=== PATIENT | female | born 1950 | race African-American/Black ===

== ENCOUNTER 2020-02-07 12:59 | Outpatient (CLI) | payer MEDICARE, SELFPAY ==
--- NOTE | 2020-02-07 | ECHO_ITS ---
Patient Info Name: Rodney Love Age: 69 years : 1950 Gender: Female Ht: 61 in Wt: 151 lbs BSA: 1.74 m2 HR: 65 bpm BP: 157 / 106 mmHg Technical Quality: Good Exam Date: 02/07/2020 1:29 PM Exam Location: [facility] Patient Status: Outpatient Admit Date: 02/07/2020 Staff Ordering Physician: Robin Sellers DO Franchise Business Consultant: Tiki Yepez RDCS Attending Provider: Robin Sellers DO Referring Physician: Marlo STERLING; Exam Type: CA echo doppler color flow Study Info Indications - cardiomyopathy Complete two-dimensional, color flow and Doppler transthoracic echocardiogram is performed. Summary 1. Complete two-dimensional, color flow and Doppler transthoracic echocardiogram is performed. 2. Left ventricular chamber dimension is severely enlarged. 3. Left ventricular systolic function is severely reduced, estimated at 25-30%. 4. The left ventricular diastolic function is grade I diastolic dysfunction. 5. E/e' 17 is elevated. 6. Global longitudinal strain is abnormal at -7.4%. 7. Linear artifact in right ventricle suggestive of catheter(s), pacemaker lead(s), or ICD lead(s). 8. Left atrial chamber dimension is moderately enlarged. 9. Linear artifact in the right atrium suggestive of catheter(s), pacemaker lead(s), or ICD lead(s). 10. The mitral valve has mildly thickened leaflets. 11. There is moderate to severe mitral valve regurgitation. 12. There is mild to moderate tricuspid valve regurgitation. 13. No pulmonary hypertension, estimated pulmonary arterial systolic pressure is 30 mmHg. 14. There is trace pulmonic regurgitation. 15. There is trivial pericardial effusion. Left Ventricle E/e' 17 is elevated. Global longitudinal strain is abnormal at -7.4%. Left ventricular chamber dimension is severely enlarged. Left ventricular systolic function is severely reduced, estimated at 25-30%. The left ventricular diastolic function is grade I diastolic dysfunction. Right Ventricle Linear artifact in right ventricle suggestive of catheter(s), pacemaker lead(s), or ICD lead(s). Right ventricular chamber dimension is not well visualized. Left Atria Left atrial chamber dimension is moderately enlarged. Right Atria Linear artifact in the right atrium suggestive of catheter(s), pacemaker lead(s), or ICD lead(s). Right atrial chamber dimension is not well visualized. Aortic Valve The aortic valve is trileaflet. There is no aortic valve stenosis. There is no aortic valve regurgitation. Pulmonic Valve There is trace pulmonic regurgitation. Mitral Valve The mitral valve has mildly thickened leaflets. There is no mitral valve stenosis. There is moderate to severe mitral valve regurgitation. Tricuspid Valve There is mild to moderate tricuspid valve regurgitation. No pulmonary hypertension, estimated pulmonary arterial systolic pressure is 30 mmHg. Pericardium/Pleural There is trivial pericardial effusion. Inferior Vena Cava Normal inferior vena cava with >50% collapse upon inspiration consistent with normal right atrial pressure, 5 mmHg. Aorta The aortic root size at the sinus of Valsalva is normal. Left Ventricular Outflow Tract Name Value Normal LVOT 2D LVOT Diameter
== END 2020-02-07 13:00 | disposition home or self-care (01) ==
LOC: ANHCARD 13:07
PROVIDERS: PCP Internal Medicine; Visit Provider Internal Medicine Cardiovascular Disease
DX: I42.8 Other cardiomyopathies (principal)
CPT/HCPCS: 93306

== ENCOUNTER 2020-08-28 14:40 | Outpatient (CLI) | payer MEDICARE, SELFPAY ==
[2020-08-28 16:03] LABS: Alanine Aminotransferase 20 U/L (4-35); Albumin Level 4.2 g/dL (3.5-5.1); Alkaline Phosphatase 74 U/L (38-126); Anion Gap 3 mmol/L (8-16); Aspartate Amino Transferase 28 U/L (14-36); Bilirubin,Total 0.4 mg/dL (0.2-1.3); Blood Urea Nitrogen 14 mg/dL (7-17); Calcium 9.6 mg/dL (8.4-10.2); Carbon Dioxide 30 mmol/L (22-30); Chloride 108 mmol/L (98-107); Cholesterol 158 mg/dL (0-200); Estimated Glomerular Filt Rate > 60; Glucose 110 mg/dL (65-105); HDL Direct 52 mg/dL; Magnesium 1.6 mg/dL (1.6-2.3); Sodium 141 mmol/L (137-145); Triglycerides 94 mg/dL (<150)
[2020-08-28 16:13] LABS: LDL Cholesterol Direct 77 mg/dL
[2020-08-28 16:22] LABS: Digoxin 0.6 ng/mL (0.8-2.0)
[2020-08-28 16:57] LABS: Hemoglobin A1C 6.2 % (<5.7)
== END 2020-08-28 14:41 | disposition home or self-care (01) ==
PROVIDERS: PCP Internal Medicine; Visit Provider Internal Medicine Cardiovascular Disease
DX: E78.5 Hyperlipidemia, unspecified (principal); I42.8 Other cardiomyopathies; E11.9 Type 2 diabetes mellitus without complications
CPT/HCPCS: 36415; 80053; 80061; 80162; 83036; 83735; 84443

== ENCOUNTER 2021-04-10 10:44 | Emergency (ER) | payer MEDICARE, SELFPAY ==
--- NOTE | ~2021-04-10 | XR_ITS ---
EXAMINATION: XR chest 2V DATE: 04/10/2021 11:24 INDICATION: Chest pain and shortness of breath TECHNIQUE: PA and lateral views of the chest are obtained. COMPARISON: None available FINDINGS: Cardiomegaly is noted. There is a mild diffuse interstitial pattern. There are small pleura l effusions. No pneumothorax is identified. A triple lead cardiac pacemaker of the left chest wall en ds with leads in expected locations. There is moderate thoracic spondylosis. IMPRESSION: 1. Cardiomegaly with mild pulmonary edema. 2. Small pleural effusions. Reviewed, dictated and finalized at location A.
--- NOTE | 2021-04-10 10:45 | ECG_ITS ---
Measurements Intervals [place] Rate: 87 P: 24 ME: 147 QRS: -48 QRSD: 124 T: 71 QT: 391 QTc: 471 Interpretive Statements ATRIAL SENSE- ELECTRONIC VENTRICULAR PACEMAKER NO FURTHER INTERPRETATION IS POSSIBLE ATYPICAL ECG Electronically Signed On 04-10-2021 10:59:21 CDT by Robni Sellers D.O.
--- NOTE | 2021-04-10 10:46 | PC.NURSE ---
4 baby asa given by ems prior to arrival
[2021-04-10 10:49] VITALS: BP 109/76; PULSE 90; RESP 18; TEMP 36.7; O2SAT 95
--- NOTE | 2021-04-10 10:55 | PC.NURSE ---
I documented but did not obtain the EKG
[2021-04-10 11:16] LABS: Basophils Absolute Auto 0.1 K/mm3 (0.0-0.1); Basophils Percent Auto 0.7 % (0.2-1.2); Eosinophils Absolute Auto 0.1 K/mm3 (0-0.3); Eosinophils Percent Auto 1.3 % (0-4.4); Hematocrit 45.7 % (37.0-47.0); Hemoglobin 14.6 g/dL (12.0-15.0); Immature Granulocyte Absolute 0.08 K/mm3 (0.00-0.031); Lymphocytes Absolute Auto 3.59 K/mm3 (0.9-3.2); Lymphocytes Percent Auto 43.1 % (18.3-44.2); Mean Corpuscular HGB Conc 31.9 g/dl (32-36); Mean Corpuscular Hemoglobin 27.2 pg (26-34); Mean Corpuscular Volume 85.3 fl (80-100); Mean Platelet Volume 10.6 fl (7.4-10.4); Monocytes Absolute Auto 0.6 K/mm3 (0.1-0.6); Monocytes Percent Auto 6.6 % (2.6-8.5); Neutrophils Absolute Auto 3.9 K/mm3 (1.3-6.7); Neutrophils Percent Auto 47.3 % (45.5-73.1); Platelet Count Result 266 k/mm3 (150-375); Red Blood Count 5.36 M/mm3 (4.2-5.4); Red Cell Distribution Width 17.4 % (11.5-14.5); White Blood Count 8.3 K/mm3 (4.5-10.0)
[2021-04-10 11:30] LABS: Prothrombin Time 12.9 Seconds (11.1-14.7)
[2021-04-10 11:31] LABS: Partial Thromboplastin Time 25.8 SECONDS (22.3-36.8)
[2021-04-10 11:44] LABS: Anion Gap 10 mmol/L (8-16); Blood Urea Nitrogen 13 mg/dL (7-17); Calcium 10.2 mg/dL (8.4-10.2); Carbon Dioxide 26 mmol/L (22-30); Chloride 109 mmol/L (98-107); Estimated CRCL calculation 45 ml/min; Estimated Glomerular Filt Rate > 60; Glucose 131 mg/dL (65-110); Potassium 4.5 mmol/L (3.4-5.0); Sodium 145 mmol/L (137-145)
[2021-04-10 11:56] LABS: Troponin I < 0.012 ng/mL (0.000-0.034)
[2021-04-10 12:07] LABS: Platelet Estimate Adequate (Adequate)
[2021-04-10 12:08] LABS: Atypical Lymphocytes Present
[2021-04-10 16:28] LABS: Troponin I 0.012 ng/mL (0.000-0.034)
--- NOTE | 2021-04-10 16:58 | ED.CHESTPAIN ---
HPI - Chest Pain General Chief Complaint: Chest Pain Stated Complaint: chest pain Time Seen by Provider: 04/10/21 13:01 Source: patient History of Present Illness HPI narrative: Patient presents with chest pain. Patient ports she had chest pain about 945 this morning lasted approximately 30 minutes. Pain is achy, constant, no clear aggravating relieving factors. Associate with cold sweats and shortness of breath. Symptoms resolved after 30 minutes. Reports a continued dull ache that is in the center of her chest that is exacerbated with palpation of her chest. She denies any lightheadedness visit denies any nausea or vomiting. Patient never had symptoms like this before. She denies recent fevers, cough, congestion Related Data Home Medications Medication Instructions Recorded Confirmed alendronate 5 mg tablet 5 mg PO QAM 09/10/19 08/28/20 carvedilol 25 mg tablet 25 mg PO Q12H 09/10/19 08/28/20 ezetimibe 10 mg tablet 10 mg PO DAILY 09/10/19 08/28/20 sertraline 100 mg tablet 100 mg PO DAILY 09/10/19 08/28/20 furosemide 40 mg tablet 40 mg PO QAM 05/28/20 08/28/20 Allergies Allergy/AdvReac Type Severity Reaction Status Date / Time No Known Allergies Allergy Verified 03/06/21 11:23 Review of Systems Review of Systems: CONSTITUTIONAL: Denies fever, chills, or sweats. EYES: Denies visual changes, redness, or discharge. ENT: Denies rhinorrhea, congestion, sore throat, or otalgia. CARDIOVASCULAR: Denies palpitations. RESPIRATORY: Denies cough GASTROINTESTINAL: Denies abdominal pain, nausea, vomiting, or diarrhea. GENITOURINARY: Denies dysuria or hematuria. SKIN: Denies rash or itching. MUSCULOSKELETAL: Denies back pain, joint pain, or myalgia. NEUROLOGIC: Denies headache, numbness, dizziness, or weakness. PSYCHIATRIC: Denies anxiety or depression. All systems reviewed & are unremarkable except as noted in HPI and below PMFSH Past Medical History Medical History History of cataract Family History Family History Father Diabetes mellitus Hypertension Family history of cardiovascular disease Mother Hypertension Family history of cardiovascular disease Family history of Alzheimer's disease Social History Social History Smoking packs per day: 0.5 Smoking cigarettes per day: 10.0 Smoking status: Current every day smoker Alcohol intake: current Exam Narrative: GENERAL: Well-appearing, well-nourished, and in no acute distress. HEAD: Normocephalic, atraumatic. EYES: PERRLA and EOMI. ENT: Nares clear, no rhinorrhea or epistaxis. Mucous membranes moist. NECK: Supple. No masses. No JVD CHEST: Clear to auscultation. No respiratory distress. No wheezes rales or rhonchi HEART: Regular rate and rhythm. No murmur heard. Normal peripheral pulses. ABDOMEN: Soft, nontender, nondistended, normal active bowel sounds. EXTREMITIES: Normal range of motion. No edema. SKIN: Warm, dry, no rash. NEURO: No focal deficits. Alert and oriented x3. PSYCH: Normal mood and affect. Course Reevaluation(s) Reevaluation #1: Patient continues to be without recurrence of her symptoms. Labs were reassuring to include delta troponin. Case discussed with Dr. Sellers who will be happy to see the patient as an outpatient Date: 04/10/21 Time: 17:04 Vital Signs Vital signs: Vital Signs Temperature 36.7 C 04/10/21 10:49 Pulse Rate 90 04/10/21 10:49 Respiratory Rate 18 04/10/21 10:49 Blood Pressure 109/76 04/10/21 10:49 Pulse Oximetry 95 04/10/21 10:49 Temperature 36.7 C 04/10/21 10:49 Pulse Rate 93 04/10/21 17:08 Respiratory Rate 16 04/10/21 17:08 Blood Pressure 160/85 H 04/10/21 17:08 Pulse Oximetry 100 04/10/21 17:08 MDM - Chest Pain MDM Narrative Medical decision making narrative: H&P as above, vss, pt looks clinically well,
[2021-04-10 17:08] VITALS: BP 160/85; PULSE 93; RESP 16; O2SAT 100
[2021-04-10] MEDS: ACETAMINOPHEN 500 MG TABLET 1000 MG PO (17:10)
== END 2021-04-10 17:17 | disposition home or self-care (01) ==
PROVIDERS: Emergency Provider Emergency Medicine; PCP Internal Medicine
DX: R07.9 Chest pain, unspecified (principal); F17.210 Nicotine dependence, cigarettes, uncomplicated; I51.7 Cardiomegaly; Z95.0 Presence of cardiac pacemaker
CPT/HCPCS: 36415; 71046; 80048; 84484; 85025; 85610; 85730; 93005; 99284; A9270

== ENCOUNTER 2021-04-30 12:37 | Outpatient (CLI) | payer MEDICARE, SELFPAY ==
--- NOTE | 2021-04-30 12:58 | ECHO_ITS ---
Patient Info Name: Rodney Love Age: 71 years : 1950 Gender: Female Ht: 64 in Wt: 160 lbs BSA: 1.83 m2 HR: 72 bpm BP: 131 / 79 mmHg Heart Rhythm: Sinus Rhythm Exam Date: 04/30/2021 1:08 PM Exam Location: [facility] Patient Status: Outpatient Admit Date: 04/30/2021 Staff Ordering Physician: Robin Sellers DO Ore Crusher: Marivel De La Cruz RDCS Attending Provider: Robin Sellers DO Referring Physician: Marlo STERLING; Exam Type: CA echo doppler color flow Study Info Indications I42.8 - Other cardiomyopathies Complete two-dimensional, color flow and Doppler transthoracic echocardiogram is performed. Summary 1. Complete two-dimensional, color flow and Doppler transthoracic echocardiogram is performed. 2. Left ventricular chamber dimension is moderately enlarged. 3. Left ventricular systolic function is severely reduced, estimated at 25-30%. 4. The left ventricular diastolic function is grade I diastolic dysfunction. 5. E/e' 33 is significantly elevated. 6. Right ventricular systolic function is reduced based on abnormal TAPSE 1.4 cm. 7. Linear artifact in right ventricle suggestive of catheter(s), pacemaker lead(s), or ICD lead(s). 8. Left atrial chamber dimension is moderately enlarged. 9. Linear artifact in the right atrium suggestive of catheter(s), pacemaker lead(s), or ICD lead(s). 10. There is mild aortic valve sclerosis. 11. The mitral valve has mildly calcified annulus. 12. There is mild to moderate mitral valve regurgitation. 13. There is moderate tricuspid valve regurgitation. 14. No pulmonary hypertension, estimated pulmonary arterial systolic pressure is 32 mmHg. Left Ventricle E/e' 33 is significantly elevated. Left ventricular chamber dimension is moderately enlarged. Left ventricular systolic function is severely reduced, estimated at 25-30%. The left ventricular diastolic function is grade I diastolic dysfunction. Right Ventricle Right ventricular systolic function is reduced based on abnormal TAPSE 1.4 cm. Linear artifact in right ventricle suggestive of catheter(s), pacemaker lead(s), or ICD lead(s). Right ventricular chamber dimension is not well visualized. Left Atria Left atrial chamber dimension is moderately enlarged. Right Atria Linear artifact in the right atrium suggestive of catheter(s), pacemaker lead(s), or ICD lead(s). Right atrial chamber dimension is normal. Aortic Valve The aortic valve is trileaflet. There is mild aortic valve sclerosis. There is no aortic valve stenosis. There is no aortic valve regurgitation. Pulmonic Valve There is no pulmonic regurgitation. Mitral Valve The mitral valve has mildly calcified annulus. There is no mitral valve stenosis. There is mild to moderate mitral valve regurgitation. Tricuspid Valve There is moderate tricuspid valve regurgitation. No pulmonary hypertension, estimated pulmonary arterial systolic pressure is 32 mmHg. Pericardium/Pleural There is no pericardial effusion. Inferior Vena Cava Normal inferior vena cava with >50% collapse upon inspiration consistent with normal right atrial pressure, 5 mmHg. Aorta The aortic root size at the sinus of Valsalva is normal. Left Ventricular Outflow Tract Name Value Normal LVOT 2D
== END 2021-04-30 12:38 | disposition home or self-care (01) ==
LOC: ANHCARD 12:39
PROVIDERS: PCP Internal Medicine; Visit Provider Internal Medicine Cardiovascular Disease
DX: Z09 Encounter for follow-up examination after completed treatment for conditions other than malignant neoplasm (principal); I42.8 Other cardiomyopathies; I36.1 Nonrheumatic tricuspid (valve) insufficiency; I34.0 Nonrheumatic mitral (valve) insufficiency; I70.0 Atherosclerosis of aorta
CPT/HCPCS: 93306

== ENCOUNTER 2021-08-13 12:59 | Outpatient (CLI) | payer MEDICARE, SELFPAY ==
[2021-08-13 14:32] LABS: Alanine Aminotransferase 24 U/L (4-35); Albumin Level 4.6 g/dL (3.5-5.1); Alkaline Phosphatase 87 U/L (38-126); Anion Gap 6 mmol/L (8-16); Aspartate Amino Transferase 32 U/L (14-36); Bilirubin,Total 0.5 mg/dL (0.2-1.3); Blood Urea Nitrogen 16 mg/dL (7-17); Calcium 9.6 mg/dL (8.4-10.2); Carbon Dioxide 30 mmol/L (22-30); Chloride 107 mmol/L (98-107); Cholesterol 188 mg/dL (0-200); Estimated Glomerular Filt Rate 59; Glucose 96 mg/dL (65-110); HDL Direct 47 mg/dL; Potassium 4.4 mmol/L (3.4-5.0); Sodium 143 mmol/L (137-145); Triglycerides 95 mg/dL (<150)
[2021-08-13 14:45] LABS: LDL Cholesterol Direct 110 mg/dL
== END 2021-08-13 13:00 | disposition home or self-care (01) ==
LOC: ANHLAB 13:37
PROVIDERS: PCP Internal Medicine; Visit Provider Internal Medicine Cardiovascular Disease
DX: E78.5 Hyperlipidemia, unspecified (principal)
CPT/HCPCS: 36415; 80053; 80061

== ENCOUNTER 2022-11-30 01:04 | Day surgery (SDC) | payer MEDICARE, SELFPAY ==
[2022-11-29 12:51] VITALS: BMI 30.4
--- NOTE | 2022-11-29 13:13 | PC.NURSE ---
Pt did not have time to complete pre-procdure call. She will bring list of meds day of procedure
[2022-11-30] VITALS (7 sets, daily range): BP systolic 114–137; BP diastolic 71–84; PULSE 68–86; RESP 12–16; TEMP 36.4; O2SAT 98–99; BMI 31.0
--- NOTE | 2022-11-30 09:51 | PM.IMHP ---
H&P: HPI History of Present Illness Date/Time: 11/30/22 09:51 Chief Complaint: [address] Bi V ICD at RUIZ Narrative: Suni Love is a 72-year-old female with history of nonischemic cardiomyopathy, [address] Bi V ICD, hypertension, dyslipidemia, diabetes, tobacco use and CKD stage 3. She is normally followed by Dr. Sellers. Her Bi V ICD has reached [facility] and she is here for generator change. Her echo in April 2021 showed an ejection fraction 25-30%. She had original Bi V ICD implanted in [place] in 2008, with a generator change in 2015. She was last seen in his office on 10/13/2022 with stable CHF. She has been NPO and she is not on any anticoagulants. No known allergies. She does have some chronic BOYER which she thinks may be a little worse recently due to the smoky air and some mild pedal edema. Otherwise she is feeling well with no fevers or signs of infection. Review of Systems Constitutional: Constitutional: Denies fever(s) Eyes: Eyes: Reports no additional eye complaints ENT: Denies epistaxis Cardiovascular: Cardiovascular: Denies chest pain, Reports pedal edema, Denies lightheadedness and Reports dyspnea Respiratory: Respiratory: Denies chest congestion, Reports dyspnea and Reports dyspnea on exertion Gastrointestinal: Gastrointestinal: Denies abdominal pain and Denies hematochezia Genitourinary: Genitourinary: Denies dysuria Musculoskeletal: Musculoskeletal: Reports no additional musculoskeletal complaints Comments: Notes some discomfort of the left flank and lateral aspect of her abdomen Integumentary/Breasts: Skin/Breast: Reports system reviewed and no additional complaints, except as docu Neurologic: Reports system reviewed and no additional complaints, except as documented and Denies behavioral changes Psychiatric: Psychiatric: Denies behavioral changes [facility] Past Medical History Medical History (Updated 11/30/22 @ 10:20 by Aspen Shaikh MD) Biventricular implantable cardioverter-defibrillator (ICD) at end of device life [address]'s Bi V ICD was implanted in [place] in 2008, generator change in [place] in 2015, and another generator change at [facility] in 2022. CKD (chronic kidney disease) stage 3, GFR 30-59 ml/min Dyslipidemia Essential hypertension History of cataract NICM (nonischemic cardiomyopathy) Tobacco abuse Family History Family History Father Diabetes mellitus Hypertension Family history of cardiovascular disease Mother Hypertension Family history of cardiovascular disease Family history of Alzheimer's disease Social History Social History Smoking packs per day: 0.5 Smoking cigarettes per day: 10.0 Smoking status: Current every day smoker Tobacco type: cigarettes Alcohol intake: current Living arrangements: alone Spiritual care concerns: No Meds Home Medications and Allergies Home Medications Medication Instructions Recorded Confirmed Type alendronate 5 mg tablet 5 mg PO WEEKLY 09/10/19 11/30/22 History sertraline 100 mg tablet 100 mg PO DAILY 09/10/19 11/30/22 History allopurinol 100 mg tablet 100 mg PO DAILY 11/30/22 11/30/22 History atorvastatin 80 mg tablet 40 mg PO DAILY 11/30/22 11/30/22 History carvedilol 25 mg tablet 25 mg PO Q12H 11/30/22 11/30/22 History cholecalciferol (vitamin D3) 125 125 mcg PO DAILY 11/30/22 11/30/22 History mcg (5,000 unit) tablet (Vitamin D3) digoxin 125 mcg (0.125 mg) tablet 0.125 mg PO DAILY 11/30/22 11/30/22 History enalapril maleate 5 mg tablet 5 mg PO DAILY 11/30/22 11/30/22 History ezetimibe 10 mg tablet 10 mg PO DAILY 11/30/22 11/30/22 History famotidine 20 mg tablet 20 mg PO BID 11/30/22 11/30/22 History furosemide 40 mg tablet 40 mg PO DAILY 11/30/22 11/30/22 History glimepiride 1 mg tablet 1 mg PO QAM 11/30/22 11/30/22 History potassium chloride 10 mEq 10
[2022-11-30 09:57] LABS: Basophils Absolute Auto 0.1 K/mm3 (0.0-0.1); Basophils Percent Auto 0.7 % (0.2-1.2); Eosinophils Absolute Auto 0.1 K/mm3 (0-0.3); Eosinophils Percent Auto 0.8 % (0-4.4); Hematocrit 41.3 % (37.0-47.0); Hemoglobin 12.7 g/dL (12.0-15.0); Immature Granulocyte Absolute 0.04 K/mm3 (0.00-0.031); Immature Granulocyte Percent A 0.6 % (0-0.5); Lymphocytes Absolute Auto 2.61 K/mm3 (0.9-3.2); Lymphocytes Percent Auto 36.1 % (18.3-44.2); Mean Corpuscular HGB Conc 30.8 g/dl (32-36); Mean Corpuscular Hemoglobin 26.1 pg (26-34); Mean Platelet Volume 11.4 fl (7.4-10.4); Monocytes Absolute Auto 0.6 K/mm3 (0.1-0.6); Monocytes Percent Auto 7.6 % (2.6-8.5); Neutrophils Absolute Auto 3.9 K/mm3 (1.3-6.7); Neutrophils Percent Auto 54.2 % (45.5-73.1); Platelet Count Result 225 k/mm3 (150-375); Red Blood Count 4.86 M/mm3 (4.2-5.4); White Blood Count 7.2 K/mm3 (4.5-10.0)
[2022-11-30 10:09] LABS: Anion Gap 4 mmol/L (8-16); Blood Urea Nitrogen 18 mg/dL (7-17); Calcium 9.1 mg/dL (8.4-10.2); Carbon Dioxide 26 mmol/L (22-30); Chloride 110 mmol/L (98-107); Estimated CRCL calculation 41 ml/min; Estimated Glomerular Filt Rate > 60; Glucose 139 mg/dL (65-110); Potassium 4.6 mmol/L (3.4-5.0); Sodium 140 mmol/L (137-145)
--- NOTE | 2022-11-30 10:21 | WPDMODSED ---
Moderate Sedation Note-Pt Data Patient Data Diagnosis: [address]'s Bi V ICD at RUIZ nonischemic dilated cardiomyopathy Present Complaint: Bi V ICD at RUIZ Procedure to be performed/Plan: conscious sedation Generator change Allergies Allergy/AdvReac Type Severity Reaction Status Date / Time No Known Allergies Allergy Verified 11/30/22 09:27 Home Medications Medication Instructions Recorded Confirmed Type alendronate 5 mg tablet 5 mg PO WEEKLY 09/10/19 11/30/22 History sertraline 100 mg tablet 100 mg PO DAILY 09/10/19 11/30/22 History allopurinol 100 mg tablet 100 mg PO DAILY 11/30/22 11/30/22 History atorvastatin 80 mg tablet 40 mg PO DAILY 11/30/22 11/30/22 History carvedilol 25 mg tablet 25 mg PO Q12H 11/30/22 11/30/22 History cholecalciferol (vitamin D3) 125 125 mcg PO DAILY 11/30/22 11/30/22 History mcg (5,000 unit) tablet (Vitamin D3) digoxin 125 mcg (0.125 mg) tablet 0.125 mg PO DAILY 11/30/22 11/30/22 History enalapril maleate 5 mg tablet 5 mg PO DAILY 11/30/22 11/30/22 History ezetimibe 10 mg tablet 10 mg PO DAILY 11/30/22 11/30/22 History famotidine 20 mg tablet 20 mg PO BID 11/30/22 11/30/22 History furosemide 40 mg tablet 40 mg PO DAILY 11/30/22 11/30/22 History glimepiride 1 mg tablet 1 mg PO QAM 11/30/22 11/30/22 History potassium chloride 10 mEq 10 meq PO DAILY 11/30/22 11/30/22 History tablet,extended release Sedation/Anesthesia: No previous sedation/anesthesia problems (including family history). [facility] Past Medical History Medical History (Updated 11/30/22 @ 10:20 by Aspen Shaikh MD) Biventricular implantable cardioverter-defibrillator (ICD) at end of device life [address]'s Bi V ICD was implanted in [place] in 2008, generator change in [place] in 2015, and another generator change at [facility] in 2022. CKD (chronic kidney disease) stage 3, GFR 30-59 ml/min Dyslipidemia Essential hypertension History of cataract NICM (nonischemic cardiomyopathy) Tobacco abuse Family History Family History Father Diabetes mellitus Hypertension Family history of cardiovascular disease Mother Hypertension Family history of cardiovascular disease Family history of Alzheimer's disease Social History Social History Smoking packs per day: 0.5 Smoking cigarettes per day: 10.0 Smoking status: Current every day smoker Tobacco type: cigarettes Alcohol intake: current Living arrangements: alone Spiritual care concerns: No Mod Sed Physical Exam Physical Exam Pre Procedural Exam: Normal: Appearance, Eyes, Ears, Nose, Neck, Throat, Airway, Lungs, Heart Size, Heart Rate, Heart Rhythm, Neuro Exam, Abdomen and Skin ( pacemaker site is free of lesions) and Variation: Extremities ( mild lower extremity edema) Hours since solid foods: 12 Hours since liquid intake: 12 Mallampati Classification: class III Internal Medicine - PN: Obj Da Vital Signs Vital Signs: Vital Signs - 24 hr 11/30/22 09:51 Temperature 97.6 F Pulse Rate 86 Respiratory Rate 12 Blood Pressure 114/74 Pulse Oximetry 98 Oxygen Delivery Room Air Labs 11/30/22 09:25 11/30/22 09:25 Labs: Laboratory Results - last 24 hr 11/30/22 09:25 WBC 7.2 RBC 4.86 Hgb 12.7 Hct 41.3 MCV 85.0 MCH 26.1 MCHC 30.8 L RDW 17.0 H Plt Count 225 MPV 11.4 H Immature Gran % (Auto) 0.6 H Neut % (Auto) 54.2 Lymph % (Auto) 36.1 Dickens % (Auto) 7.6 Eos % (Auto) 0.8 Baso % (Auto) 0.7 Lymph # (Auto) 2.61 Dickens # (Auto) 0.6 Eos # (Auto) 0.1 Baso # (Auto) 0.1 Abs Immat Gran (auto) 0.04 H Absolute Neuts (auto) 3.9 Absolute Nucleated RBC 0.0 Nucleated RBC % 0.0 PT 13.0 INR 1.0 Sodium 140 Potassium 4.6 Chloride 110 H Carbon Dioxide 26 Anion Gap 4 L BUN 18 H Creatinine 1.00 Estim Creat Clear Calc 41 Estimated GFR > 60 Glucose
--- NOTE | 2022-11-30 10:50 | W.PM.PROC2 ---
Procedure Note - Detailed Date of Procedure 11/30/22 Pre-op Diagnosis RUIZ Post-op Diagnosis Same ( , status post generator change) Procedure Performed Conscious sedation Generator change Surgeon Aspen Shaikh MD Anesthesia Local ( with conscious sedation) Indications Suni Love is a 72-year-old female with history of nonischemic cardiomyopathy, [address]'s Bi V ICD, hypertension, dyslipidemia, diabetes,? tobacco use and CKD.? She is normally followed by Dr. Sellers.? Her Bi V ICD has reached RUIZ and she is here for generator change.? Her echo in April 2021 showed an ejection fraction 25-30%.? She had original Bi V ICD implanted in [place] in 2008, with a generator [place] [address] Denney in [place].? She was last seen in his office on 10/13/2022 with stable CHF.?? Findings Not pacer-dependent Description of Procedure PROCEDURE: Conscious sedation Generator change UNDERLYING RHYTHM: NSR CONSCIOUS SEDATION: Assessment: The patient has no history of anesthesia problems. The oropharynx is clear. The patient was deemed to be a good candidate for conscious sedation. The patient had continuous hemodynamic and oximetric monitoring during the procedure. Start time: 1058 a.m. Completion time: 1143 Total conscious sedation time: 45 min Medications: Versed 2 mg, fentanyl 100 mcg IV push Trained observer: Bianka Rodriguez, Outcome: The patient tolerated the procedure well with no complications. PROCEDURE: After informed consent, the patient is brought to the brine room laborer and the left prepectoral area was prepped and draped in usual fashion. The patient was given a prophylactic antibiotic intravenously with Ancef 1 mg IVP. After conscious sedation as described above, the area was anesthetized with 1% lidocaine. A skin incision is made with the Plasma Blade and carried down to the pacing capsule which was also incised. Hemostasis is obtained using the Plasma Blade. The lead/s was/were freed from the underlying capsule and inspected and were found to be intact. The pulse generator was delivered from the pocket. The lead/s was/were disconnected from the existing device and reconnected to the new device. A gentle tug could not remove it/them. The device and lead/s was/were interrogated and found to be functioning appropriately. The area was copiously irrigated with antibiotic-containing solution. The device was placed in a TyRx pouch and replaced in the pocket. The subcutaneous tissues were closed in a two-layer fashion with interrupted 2 0 Vicryl sutures and the skin was closed in a continuous fashion using 4 0 Vicryl. The area was cleansed, an Aquacel dressing applied. The patient tolerated the procedure well with no complications. Estimated blood loss was negligible. THRESHOLD INFORMATION: atrial lead: P wave sensing 1.5 mV, impedance 250 Ohms, threshold 2.75 volts at 0.5 milliseconds ( chronically Elevated) Right ventricular lead: R-wave sensing 11.9 mV, impedance 430 Ohms, threshold 0.75 volts at 0.5 milliseconds Left ventricular lead: Impedance 630 Ohms, threshold 1.0 volts at 0.8 milliseconds High-voltage lead: Impedance 87 Ohms PROGRAMMED PARAMETERS: DDDR 60-130, V-tach 750 ppm, VFib zone 181 ppm Implants New pulse generator: [employer] model 3357-40C, serial number [id number] Atrial lead: [address] [employer] model 1782 TC/ 52 cm, serial number [id number], implanted 10/25/2008 Right ventricular lead: [address] [employer] model 7122/62 cm, serial number [id number], implanted 10/25/2008 Left ventricular lead: [address] [employer] model 1058 T/ 86 cm, serial number [id number], implanted 10/25/2008 Explanted model 3357-40 C, serial number [id number], implanted 01/01/2015 Estimated Blood Loss 10 (cc's) Complications No immediate complications Condition Stable Disposition Observation
--- NOTE | 2022-11-30 12:02 | PM.OP ---
Procedure Note - Brief Procedure Note - Brief Date of procedure: 11/30/22 RUIZ Post-op diagnosis: Same ( status post generator change) Procedure performed: conscious sedation Generator change Surgeon: Aspen Shaikh MD Description of procedure: Uneventful generator change for a [address]'s Bi V ICD Complications: No immediate complications Condition: Stable Disposition: Observation
[2022-11-30] MEDS: ACETAMINOPHEN 500 MG TABLET 1000 MG PO (12:25)
--- NOTE | 2022-11-30 12:25 | SUR.PHASEII ---
Tylenol PO per MD orders for pt c/o lt upper chest pain. VS stable. Sandra d/i. Visitor present
== END 2022-11-30 13:20 | disposition home or self-care (01) ==
PROVIDERS: PCP Internal Medicine; Visit Provider Internal Medicine Cardiovascular Disease
PROC: 0JPT0PZ Removal of Cardiac Rhythm Related Device from Trunk Subcutaneous Tissue and Fascia, Open Approach (ICD-10-PCS; CPT 33264; principal; 2022-11-30 10:00)
DX: Z45.02 Encounter for adjustment and management of automatic implantable cardiac defibrillator (principal); I42.8 Other cardiomyopathies; E78.5 Hyperlipidemia, unspecified; I13.0 Hypertensive heart and chronic kidney disease with heart failure and stage 1 through stage 4 chronic kidney disease, or unspecified chronic kidney disease; I50.9 Heart failure, unspecified; E11.22 Type 2 diabetes mellitus with diabetic chronic kidney disease; N18.30 Chronic kidney disease, stage 3 unspecified; Z79.84 Long term (current) use of oral hypoglycemic drugs; F17.210 Nicotine dependence, cigarettes, uncomplicated
CPT/HCPCS: 33264; 36415; 80048; 85025; 85610; A9270; C1882; J0690; J2250; J3010; J7040

== ENCOUNTER 2023-08-13 17:23 | Inpatient (IN) | payer MEDICARE, SELFPAY ==
[2023-08-13] VITALS (21 sets, daily range): BP systolic 112–149; BP diastolic 77–125; PULSE 108–153; RESP 17–40; TEMP 36.3; O2SAT 15–100
--- NOTE | ~2023-08-13 | XR_ITS ---
EXAMINATION: XR chest 1V portable DATE: 08/15/2023 06:09 INDICATION: Congestive heart failure. TECHNIQUE: A single frontal view of the chest was obtained. COMPARISON: Chest single view 08/13/2023 FINDINGS: There are airspace opacities in the lower lung zones. No pleural effusion or pneumothorax. Cardiomegaly is noted. There is a left chest pacer/defibrillator with leads in right atrium, right ve ntricle, and coronary sinus. IMPRESSION: 1. Improved airspace opacities in the lower lung zones, consistent with atelectasis or less likely pn eumonia. 2. Cardiomegaly. Reviewed, dictated and finalized at location E. LESS COMMUNICATIONS ENGINEER IMPRESSION: 1. Improved airspace opacities in the lower lung zones, consistent with atelect asis or less likely pneumonia. 2. Cardiomegaly.
--- NOTE | ~2023-08-13 | US_ITS ---
EXAMINATION: US renal BI DATE: 08/15/2023 16:03 INDICATION: Abdominal pain TECHNIQUE: Multiple grayscale and Doppler ultrasound images of the kidneys were obtained. COMPARISON: None. FINDINGS: The right kidney measures 8.9 x 4.7 x 5.5 cm and contains a 1 cm cyst. The left kidney ary ures 11 x 7 x 8.6 cm and contains a 6 cm cyst. The kidneys demonstrate normal parenchymal echogenicit y. There is no hydronephrosis. The bladder is normal. IMPRESSION: 1. Normal kidneys without hydronephrosis. Reviewed, dictated and finalized at location B. MOLDER
--- NOTE | ~2023-08-13 | XR_ITS ---
EXAMINATION: XR chest 1V portable Exam Date/Time: 08/13/2023 18:09 NEUROLOGY STROKE PHYSICIAN HISTORY: SOB Comparison: 04/10/2021. RESULT: Lines, tubes, and devices: Left chest pacer/AICD. Lungs and pleura: Segmental/lobar left basilar airspace disease. Moderate diffuse reticular opacitie s. Cardiomediastinal silhouette: Stable. Other: No acute osseous or upper abdominal finding. IMPRESSION: Segmental/lobar left lower lobe atelectasis/consolidation. Moderate interstitial edema. Reviewed, dictated and finalized at location K. OLOGY STROKE PHYSICIAN IMPRESSION: Segmental/lobar left lower lobe atelectasis/consolidation. Moderate interstitia l edema.
--- NOTE | ~2023-08-13 | XR_ITS ---
EXAM: XR hip RT 2V w AP pelvis DATE: 08/14/2023 18:38 HISTORY: pain, no injury . COMPARISON: None available. FINDINGS: Normal mineralization. No fracture or dislocation. No lytic or blastic lesion. Lumbar dege nerative disc disease. Mild bilateral hip osteoarthritis. Spaces are maintained. No erosion or perios teal change. Soft tissues within normal limits. IMPRESSION: No acute osseous finding in the pelvis or right hip. Reviewed, dictated and finalized at location K. T II FARMWORKER
--- NOTE | 2023-08-13 17:29 | ECG_ITS ---
Measurements Intervals [place] Rate: 139 P: 7 MO: 114 QRS: -12 QRSD: 138 T: 84 QT: 326 QTc: 496 Interpretive Statements SINUS OR ECTOPIC ATRIAL TACHYCARDIA WITH SHORT MO INTERVAL LEFT BUNDLE BRANCH BLOCK BASELINE ARTIFACT- II, III, AVL, AVF, V4-V6 ABNORMAL ECG COMPARED TO ECG 04/10/2021 10:49:40 SINUS TACHYCARDIA NOW PRESENT LEFT BUNDLE-BRANCH BLOCK NOW PRESENT Electronically Signed On 08-13-2023 20:37:27 BEDSPREAD INSPECTOR by Robin Sellers D.O.
--- NOTE | 2023-08-13 17:30 | ED.SOB ---
HPI - SOB/Dyspnea General Chief Complaint: Shortness of Breath/Dyspnea Stated Complaint: Anxiety, Agression History of Present Illness HPI Narrative: Patient is a 73-year-old female with a history of CHF, hypertension, hyperlipidemia presenting with altered mental status. History is mostly obtained from EMS. They were called for shortness of breath. On their arrival, the patient was agitated and required 2 mg of IM Versed for cooperation. She was given a breathing treatment and placed on oxygen as she was satting in the 80s. Upon arrival, the patient continues to be altered and somewhat restless. Further history is limited secondary to altered mental status at this time. Related Data Allergies Allergy/AdvReac Type Severity Reaction Status Date / Time No Known Allergies Allergy Verified 04/28/23 15:09 Review of Systems Review of Systems: ROS unobtainable: Yes unobtainable due to mental status PMFSH Past Medical History Medical History Biventricular implantable cardioverter-defibrillator (ICD) at end of device life [address] Bi V ICD was implanted in [place] in 2008, generator change in [place] in 2015, and another generator change at [facility] in 2022. CKD (chronic kidney disease) stage 3, GFR 30-59 ml/min Dyslipidemia Essential hypertension History of cataract NICM (nonischemic cardiomyopathy) Tobacco abuse Family History Family History (Updated 08/14/23 @ 00:01 by Jamee Walker RN) Father Hypertension Mother Hypertension Alzheimer disease Heart disease Sibling Diabetes mellitus Cerebrovascular accident Sibling No problems noted. Social History Social History Smoking packs per day: 0.5 Smoking cigarettes per day: 10.0 Years smoked: 60 Smoking pack-years: 30.00 Smoking status: Current every day smoker Tobacco type: cigarettes Alcohol intake: never Substance use: never Do You Feel Safe in your Home?: Yes Lack of Transportation: No Lack of Food: Never True Current Housing: I Have Housing Concerned About Future Housing: No Difficulty Paying Gas/Electric Bills: No Difficulty Paying for Meds: No Currently Unemployed: No Education: High School Diploma/GED Difficulty w/ Childcare or Family Care: No Living arrangements: alone Spiritual care concerns: No Exam Narrative: GENERAL: ill appearing, restless, opens eyes to verbal stimuli, moving all extremities HEAD: Normocephalic, atraumatic. EYES: PERRLA and EOMI. ENT: Mucous membranes moist. NECK: Supple. CHEST: On non-rebreather, wheezing bilaterally, tachypneic, moderate respiratory distress HEART: tachycardic, regular rhythm ABDOMEN: Soft, nontender, nondistended EXTREMITIES: Normal range of motion. No edema. SKIN: Warm, dry, no rash. NEURO: altered, moving all extremities spontaneously, opens eyes to verbal stimuli but not following commands currently PSYCH: unable to assess Course Vital Signs Vital signs: Vital Signs Temperature 97.4 F L 08/13/23 17:21 Pulse Rate 153 H 08/13/23 17:21 Respiratory Rate 26 H 08/13/23 17:21 Pulse Oximetry 93 08/13/23 17:21 Oxygen Delivery Non-Rebreather Mask 08/13/23 17:21 Oxygen Flow Rate 15 08/13/23 17:21 Temperature 96.2 F L 08/16/23 15:54 Pulse Rate 70 08/16/23 15:54 Respiratory Rate 18 08/16/23 15:54 Blood Pressure 109/66 08/16/23 15:54 Pulse Oximetry 97 08/16/23 15:54 Oxygen Delivery Room Air 08/16/23 04:00 Oxygen Flow Rate 2 08/15/23 14:42 Fraction of Inspired Oxygen 08/15/23 14:42 MDM - SOB/Dyspnea MDM Narrative Medical decision making narrative: 73-year-old female presenting with respiratory distress and altered mental status. On arrival, patient is altered and somewhat restless. She is pulling at her non-rebreather. Patient placed on BiPAP and tolerating
[2023-08-13] MEDS: methylPREDNISolone SOD SUCC 125 MG VIAL IV PUSH (17:35)
[2023-08-13 17:58] LABS: Basophils Absolute Auto 0.1 K/mm3 (0.0-0.1); Basophils Percent Auto 0.4 % (0.2-1.2); Eosinophils Absolute Auto 0.1 K/mm3 (0-0.3); Eosinophils Percent Auto 0.6 % (0-4.4); Hematocrit 40.6 % (37.0-47.0); Hemoglobin 12.6 g/dL (12.0-15.0); Immature Granulocyte Absolute 0.14 K/mm3 (0.00-0.031); Immature Granulocyte Percent A 1.2 % (0-0.5); Lymphocytes Absolute Auto 4.68 K/mm3 (0.9-3.2); Lymphocytes Percent Auto 40.4 % (18.3-44.2); Mean Corpuscular Hemoglobin 25.7 pg (26-34); Mean Corpuscular Volume 82.9 fl (80-100); Mean Platelet Volume 11.7 fl (7.4-10.4); Monocytes Absolute Auto 0.6 K/mm3 (0.1-0.6); Monocytes Percent Auto 5.4 % (2.6-8.5); Platelet Count Result 232 k/mm3 (150-375); Red Cell Distribution Width 16.7 % (11.5-14.5); White Blood Count 11.6 K/mm3 (4.5-10.0)
[2023-08-13] MEDS: ALBUTEROL SULFATE NEB 2.5 MG/3 ML INH 10 MG INHALATION (17:59)
[2023-08-13] MEDS: IPRATROPIUM BR 0.02% INH SOLN 0.5 MG/2.5 ML VIAL INHALATION (17:59)
[2023-08-13 18:07] LABS: Alveolar/Arterial O2 Gradient 528.5 mmHg; Base Excess ABG -9.2 mEq/l (+/-2.0); Carboxyhemoglobin 1.4 % THb (0-2.0); Fractional Inspired Oxygen 100 %; HCO3 ABG 16.9 mEq/l (22.0-26.0); Methemoglobin ABG 0.2 %THb (0-1.5); Oxygen Content ABG 18.6 %vol (16.0-22.0); Oxygen Saturation ABG 98.6 % (95.0-100.0); Oxyhemoglobin 96.7 % THb (90.0-100.0); PCO2 ABG 37.3 mmHg (35.0-45.0); PO2 ABG 147.2 mmHg (80.0-100.0); PO2 FiO2 Ratio Arterial Blood 1.47 %; Reduced Hemoglobin 1.7 %THb (0-5.0); Total Hemoglobin 13.5 g/dL (12.0-18.0)
[2023-08-13 18:08] LABS: Alanine Aminotransferase 27 U/L (6-35); Albumin Level 3.8 g/dL (3.5-5.1); Alkaline Phosphatase 76 U/L (38-126); Anion Gap 13 mmol/L (8-16); Aspartate Amino Transferase 39 U/L (14-36); Bilirubin,Total 0.8 mg/dL (0.2-1.3); Blood Urea Nitrogen 10 mg/dL (7-17); Calcium 9.3 mg/dL (8.4-10.2); Carbon Dioxide 17 mmol/L (22-30); Chloride 110 mmol/L (98-107); Estimated CRCL calculation 43 ml/min; Estimated Glomerular Filt Rate > 60; Glucose 341 mg/dL (65-110); Lipase 85 U/L (23-300); Magnesium 1.8 mg/dL (1.6-2.3); Potassium 3.9 mmol/L (3.4-5.0); Sodium 140 mmol/L (137-145)
[2023-08-13 18:08] LABS: Device NON-INVASIVE VENT; Modified Allen's Test Pass; Non-Invasive Expiratory Pressure 5 CMH2O; Non-Invasive Inspiratory Pressure 10 CMH2O; Non-Invasive Vent Rate 16 /MIN; Site Drawn RIGHT RADIAL; pH ABG 7.274 (7.350-7.450)
[2023-08-13 18:12] LABS: Lactic Acid Reflex 3.8 mmol/L (0.7-2.0)
[2023-08-13 18:19] LABS: NT Pro B Type Natriuretic Pept 2260 pg/mL (19.9-100); Troponin I 0.017 ng/mL (0.000-0.034)
[2023-08-13 18:41] LABS: INR 1.1; Prothrombin Time 15.2 Seconds (11.1-14.7)
[2023-08-13 18:42] LABS: Partial Thromboplastin Time 25.9 SECONDS (22.3-36.8)
[2023-08-13 18:51] LABS: Influenza A QL RT-PCR Negative (Negative); Influenza B QL RT-PCR Negative (Negative); RSV RNA, RT-PCR Negative (Negative); SARS-CoV-2 RNA PCR Negative (Negative)
[2023-08-13] MEDS: FUROSEMIDE INJ 40 MG/4 ML VIAL IV PUSH (19:01)
--- NOTE | 2023-08-13 20:54 | ECG_ITS ---
Measurements Intervals [place] Rate: 120 P: 50 RI: 220 QRS: -84 QRSD: 186 T: 28 QT: 420 QTc: 595 Interpretive Statements ATRIAL SENSE- ELECTRONIC VENTRICULAR PACEMAKER UNDERLYING SINUS OR ECTOPIC ATRIAL TACHYCARDIA BASELINE WANDER- I, AVR, AVL NO FURTHER INTERPRETATION IS POSSIBLE ABNORMAL ECG COMPARED TO ECG 08/13/2023 17:39:24 ELECTRONIC VENTRICULAR PACEMAKER NOW PRESENT HEART RATE HAS DECREASED Electronically Signed On 08-14-2023 7:02:48 METAL STUD FRAMER by Robin Sellers D.O.
[2023-08-13 20:56] LABS: Reflex Lactic Acid Yes or No Add Lactic
[2023-08-13 21:03] LABS: Appearance Urine Cloudy (Clear); Bacteria Urine 1+ /hpf; Bilirubin Urine Negative (Negative); Blood Urine Trace (Negative); Color Urine Yellow (Yellow); Glucose Urine UA 1+ mg/dL (Negative); Ketones Urine Negative (Negative); Leukocyte Esterase Ur Negative LEU/UL (Negative); Need Manual Microscopic Reviewed; Nitrate Urine Negative (Negative); Protein Urine 2+ mg/dL (Negative); Specific Grav Ur 1.008 (1.001-1.035); Squamous Epithelial Cell Urine Many /hpf (Few); Urobilinogen Urine 0.2 mg/dL (<2.0); pH Urine 6.5 (5.0-9.0)
[2023-08-13 21:04] LABS: Add Urine Microscopic? YES
[2023-08-13 21:34] LABS: Troponin I 0.173 ng/mL (0.000-0.034)
[2023-08-13 22:11] LABS: Lactic Acid 2.5 mmol/L (0.7-2.0)
--- NOTE | 2023-08-13 23:18 | ADMGEN ---
This patient, Rodney Love, was admitted to IMU Room 203-01. Patient/family oriented to hospital policies and general routines including ID bracelet, bed and alarms, visiting hours, pain management, procedures, bathroom and other care routines, personal items, smoking policy, room service/diet, and visiting hours. Information on how to activate the Rapid Response Team has been discussed. Patient/Family are encouraged to report perceived risks to care and to ask questions if they do not understand what they are told or what they should do.
[2023-08-14] VITALS (24 sets, daily range): BP systolic 108–153; BP diastolic 63–82; PULSE 80–111; RESP 16–25; TEMP 36.1–36.8; O2SAT 92–99
[2023-08-14 00:14] LABS: Troponin I 0.201 ng/mL (0.000-0.034)
--- NOTE | 2023-08-14 01:20 | PM.IMHP ---
H&P: HPI History of Present Illness Date/Time: 08/14/23 01:20 Chief Complaint: Altered mental status Narrative: This is a very pleasant 73-year-old female with a past medical history depression, heart failure reduced ejection fraction (25% EF in 2020), CKD, hypertension, hyperlipidemia, status post biventricular ICD with generator change at [facility] in 2022 who presents with altered mental status. In [facility] she was found to be saturating in the 80s an acidotic by way ABG,, with lactic acidosis at 3.8 and leukocytosis and a chest x-ray demonstrating left lower lobe consolidation/atelectasis with moderate interstitial edema. The patient required 2 mg of IM Versed said she was not cooperative and agitated. He was given a breathing treatment along with Solu-Medrol and Lasix and placed on BiPAP and she returned to her normal mental status. Left bundle branch block appreciated on EKG along with paced rhythm. Patient has felt depressed as she has had many deaths in the family the past 6 months. Because of this she has not taking any of her medications whatsoever. She is not seeing a therapist either. Review of Systems Review of Systems: All systems reviewed & are unremarkable except as noted in HPI and below (Subjective) [facility] Past Medical History Medical History Biventricular implantable cardioverter-defibrillator (ICD) at end of device life [address] Bi V ICD was implanted in [place] in 2008, generator change in [place] in 2015, and another generator change at [facility] in 2022. CKD (chronic kidney disease) stage 3, GFR 30-59 ml/min Dyslipidemia Essential hypertension History of cataract NICM (nonischemic cardiomyopathy) Tobacco abuse Family History Family History (Updated 08/14/23 @ 00:01 by Jamee Walker RN) Father Hypertension Mother Hypertension Alzheimer disease Heart disease Sibling Diabetes mellitus Cerebrovascular accident Sibling No problems noted. Social History Social History Smoking packs per day: 0.5 Smoking cigarettes per day: 10.0 Years smoked: 60 Smoking pack-years: 30.00 Smoking status: Current every day smoker Tobacco type: cigarettes Alcohol intake: never Substance use: never Do You Feel Safe in your Home?: Yes Lack of Transportation: No Lack of Food: Never True Current Housing: I Have Housing Concerned About Future Housing: No Difficulty Paying Gas/Electric Bills: No Difficulty Paying for Meds: No Currently Unemployed: No Education: High School Diploma/GED Difficulty w/ Childcare or Family Care: No Living arrangements: alone Spiritual care concerns: No Meds Home Medications and Allergies Home Medications Medication Instructions Recorded Confirmed Type No Home Medications 08/14/23 08/14/23 History Allergies Allergy/AdvReac Type Severity Reaction Status Date / Time No Known Allergies Allergy Verified 04/28/23 15:09 Vital Signs Vital Signs - 24 hr 08/13/23 17:21 08/13/23 17:36 08/13/23 17:36 Temperature 97.4 F L Pulse Rate 153 H 148 H 146 H Respiratory Rate 26 H 34 H Blood Pressure 147/118 H Pulse Oximetry 93 Oxygen Delivery Non-Rebreather Mask Oxygen Flow Rate 15 08/13/23 17:59 08/13/23 18:05 08/13/23 18:06 Temperature Pulse Rate 125 H Respiratory Rate 29 H Blood Pressure Pulse Oximetry 100 100 100 Oxygen Delivery BiPAP BiPAP BiPAP Oxygen Flow Rate 08/13/23 18:05 08/13/23 18:19 08/13/23 18:22 Temperature Pulse Rate 128 H 126 H 133 H Respiratory Rate 29 H 28 H 40 H Blood Pressure 119/82 Pulse Oximetry 97 100 Oxygen Delivery BiPAP Oxygen Flow Rate 08/13/23 19:03 08/13/23 22:49 08/13/23 21:40 Temperature Pulse Rate 136 H 109 H 116 H Respiratory Rate 36 H 22 H 21 H Blood Pressure
[2023-08-14] MEDS: AZITHROMYCIN 500 MG/NS 250 ML 500 MG/250 ML BAG 250 MG IVPB (03:54)
[2023-08-14 04:33] LABS: Basophils Percent Auto 0.1 % (0.2-1.2); Hematocrit 40.3 % (37.0-47.0); Hemoglobin 12.7 g/dL (12.0-15.0); Immature Granulocyte Absolute 0.06 K/mm3 (0.00-0.031); Immature Granulocyte Percent A 0.6 % (0-0.5); Lymphocytes Absolute Auto 0.68 K/mm3 (0.9-3.2); Lymphocytes Percent Auto 6.6 % (18.3-44.2); Mean Corpuscular HGB Conc 31.5 g/dl (32-36); Mean Corpuscular Hemoglobin 25.8 pg (26-34); Mean Corpuscular Volume 81.7 fl (80-100); Mean Platelet Volume 11.1 fl (7.4-10.4); Monocytes Absolute Auto 0.2 K/mm3 (0.1-0.6); Monocytes Percent Auto 1.6 % (2.6-8.5); Neutrophils Absolute Auto 9.4 K/mm3 (1.3-6.7); Neutrophils Percent Auto 91.1 % (45.5-73.1); Platelet Count Result 211 k/mm3 (150-375); Red Blood Count 4.93 M/mm3 (4.2-5.4); Red Cell Distribution Width 16.3 % (11.5-14.5); White Blood Count 10.3 K/mm3 (4.5-10.0)
[2023-08-14 04:40] LABS: Lactic Acid Reflex 2.2 mmol/L (0.7-2.0)
[2023-08-14 04:47] LABS: Alanine Aminotransferase 39 U/L (6-35); Albumin Level 4.1 g/dL (3.5-5.1); Alkaline Phosphatase 74 U/L (38-126); Anion Gap 7 mmol/L (8-16); Aspartate Amino Transferase 50 U/L (14-36); Bilirubin,Total 0.6 mg/dL (0.2-1.3); Blood Urea Nitrogen 13 mg/dL (7-17); Calcium 9.8 mg/dL (8.4-10.2); Carbon Dioxide 25 mmol/L (22-30); Chloride 109 mmol/L (98-107); Estimated CRCL calculation 43 ml/min; Estimated Glomerular Filt Rate > 60; Glucose 177 mg/dL (65-110); Magnesium 1.7 mg/dL (1.6-2.3); Potassium 3.7 mmol/L (3.4-5.0); Sodium 141 mmol/L (137-145)
--- NOTE | 2023-08-14 05:00 | ECG_ITS ---
Measurements Intervals [place] Rate: 92 P: 48 [place]: 152 QRS: 269 QRSD: 112 T: 97 QT: 412 QTc: 511 Interpretive Statements ATRIAL SENSE- ELECTRONIC VENTRICULAR PACEMAKER NO FURTHER INTERPRETATION IS POSSIBLE ATYPICAL ECG COMPARED TO ECG 08/13/2023 20:57:43 HEART RATE HAS DECREASED Electronically Signed On 08-14-2023 15:22:41 COAT OPERATOR INSULATOR by Robin Sellers D.O.
[2023-08-14 05:02] LABS: Troponin I 0.183 ng/mL (0.000-0.034)
[2023-08-14 05:50] LABS: Base Excess ABG -1.3 mEq/l (+/-2.0); Fractional Inspired Oxygen 40 %; HCO3 ABG 23.1 mEq/l (22.0-26.0); Oxygen Content ABG 18.7 %vol (16.0-22.0); Oxygen Saturation ABG 97.4 % (95.0-100.0); Oxyhemoglobin 96.4 % THb (90.0-100.0); PCO2 ABG 37.6 mmHg (35.0-45.0); PO2 FiO2 Ratio Arterial Blood 2.42 %; Total Hemoglobin 13.7 g/dL (12.0-18.0); pH ABG 7.406 (7.350-7.450)
[2023-08-14 05:54] LABS: Device NON-INVASIVE VENT; Modified Allen's Test Pass; Non-Invasive Inspiratory Pressure 10 CMH2O; Non-Invasive Vent Rate 16 /MIN; Site Drawn LEFT RADIAL
[2023-08-14 05:55] LABS: Non-Invasive Expiratory Pressure 5 CMH2O
[2023-08-14] MEDS: FUROSEMIDE INJ 40 MG/4 ML VIAL IV PUSH (09:14)
[2023-08-14] MEDS: DIGOXIN TAB 125 MCG TABLET PO (13:18)
[2023-08-14] MEDS: carvediloL 25 MG TABLET PO ×2 (13:19→22:36)
[2023-08-14] MEDS: EZETIMIBE 10 MG TABLET PO (13:22)
[2023-08-14] MEDS: ENALAPRIL MALEATE 5 MG TABLET PO ×2 (13:22→22:36)
--- NOTE | 2023-08-14 15:04 | PM.CNCAR ---
Assessment and Plan Assessment and plan (1) Community acquired bacterial pneumonia: Code(s): J15.9 - Unspecified bacterial pneumonia Status: Acute Assessment and Plan: On antibiotics as per hospitalist. (2) Acute exacerbation of congestive heart failure: Code(s): I50.9 - Heart failure, unspecified Status: Acute Assessment and Plan: Acute on chronic combined systolic and diastolic heart failure due to stopping her cardiac medication due to depression. She is on Lasix 40 mg IV daily here, normally on Lasix 40 mg PO daily and KCl 10 meq daily. Resume Coreg, Enalapril, Digoxin. Obtain echo. (3) Biventricular ICD (implantable cardioverter-defibrillator) in place: Code(s): Z95.810 - Presence of automatic (implantable) cardiac defibrillator Status: Acute Assessment and Plan: Stable, last interrogation in Apr 2023. (4) Hypertension: Code(s): I10 - Essential (primary) hypertension Status: Acute Assessment and Plan: High. Resume home medication. (5) Dyslipidemia: Code(s): E78.5 - Hyperlipidemia, unspecified Status: Acute Assessment and Plan: On Atorvastatin and Zetia. (6) NICM (nonischemic cardiomyopathy): Code(s): I42.8 - Other cardiomyopathies Status: Acute (7) Tobacco abuse: Code(s): Z72.0 - Tobacco use Status: Acute Assessment and Plan: Counseled regarding smoking cessation. (8) Diabetes: Code(s): E11.9 - Type 2 diabetes mellitus without complications Status: Acute Assessment and Plan: Managed as per hospitalist. She would like to have right hip xray for pain per patient. History of Present Illness History of Present Illness Consult date/time: 08/14/23 15:04 Reason For Visit: CHF Exacerbation Narrative: 73 yr old woman who is my regular cardiology patient presents to ER for sob. She has a history of NICM, [address] BiV ICD, hypertension, dyslipidemia, DM, CKD stage III. States she had a few close family friends pass away since Apr 2023 and her best friend recently, and she did not have anyone to talk to. She felt depressed and did not have an appetite and therefore was only taking her medication about once a week. Then she felt more sob and could not breathe through her nose, felt some chest discomfort so she called the ambulance. It was found she has pneumonia, CHF. She has right hip pain especially with walking.? She smokes 1/4 ppd.? Denies orthopnea, PND, edema. Previously, she is under a lot of stress legally from driving under the influence and is at risk for being incarcerated for 5 years for it. Reports she is limited at walking 1/2 block now which used to be a couple of blocks due to BOYER. She feels occasional palpitations. She quit drinking alcohol. CARDIOVASCULAR PROCEDURES ECHO/MUGA: 04/30/21 Echo: EF 25-30%, mod LVE, grade I diastolic dysfunction (E/e' 33), mod LAE, mild MAC, mild-mod MR, mod TR. 02/07/20 Echo: EF 25-30%, severe LVE, grade I diastolic dysfunction (E/e' 17), mod LAE, mod-severe MR, mild-mod TR, trace PI. Echo ([place]: EF 40-45%, mod MR, mild TR.) - 08/13/2017 ELECTROPHYSIOLOGY: 11/30/[address] Shaikh. 04/10/21 EKG: Electronic ventricular paced rhythm. Devices ([address] BiVICD generator change in [place].) - 01/02/2016 Devices ([address] BiV ICD placement at [facility] in [place].) - 200804/10/21 CXR: Mild pulm edema. Small pleural effusions. Review of Systems Constitutional: Constitutional: Reports as per HPI, Denies chills and Denies fever(s) Cardiovascular: Cardiovascular: Reports as per HPI, Reports chest pain and Reports rapid heart rate Respiratory: Respiratory: Reports as per HPI and Reports dyspnea Gastrointestinal: Gastrointestinal: Reports as per HPI and Denies abdominal pain Genitourinary: Genitourinary: Reports as per HPI and Denies dysuria Musculoskeletal: Musculoskeletal: Reports as per HPI
--- NOTE | 2023-08-14 15:09 | PM.IMPN ---
Progress Note: A&P Assessment and Plan (1) Respiratory failure with hypoxia: Code(s): J96.91 - Respiratory failure, unspecified with hypoxia Status: Acute Assessment and Plan: Patient brought in by EMS for shortness of breath. Patient was agitated requiring Versed. ABG 7.27/37/147. Serum bicarb 17 with normal AG. Lactic acid 3.8. Glucose elevated but no BHO. CXR showing segmental and lobar LLL atelectasis/consolidation with moderate interstitial edema. Suspect acute on chronic CHF and/or PNA. Lasix given. Bipap started. Repeat ABG normal. Off Bipap and on O2 via nasal cannula Wean O2 as tolerated (2) Acute exacerbation of congestive heart failure: Code(s): I50.9 - Heart failure, unspecified Status: Acute Assessment and Plan: Patient presents with SOB Echo in Apr 2021 showing EF 25-30%, grade I diastolic dysfunction, decreased RV function, mild-mod MR and mod TR CXR showing interstitial edema. BNP 2260. Troponin elevated to 0.2 but flat felt related to the acute CHF Lasix started with good UOP. Continue daily weights, strict I/O's and fluid restriction Guideline directed medical therapy with Coreg and ACEi that were resumed. ICD in place. Continue IV diuretics. Check Echo Add Empagliflozin and Spironolactone (3) Community acquired bacterial pneumonia: Code(s): J15.9 - Unspecified bacterial pneumonia Status: Acute Assessment and Plan: As above. CXR showing segmental and lobar LLL atelectasis/consolidation WBC 11K. No fevers. COVID, influenza and RSV PCR is negative. Started on Rocephin and Azithromycin. Continue the same for now. Change to Doxycycline due to drug-drug interactions (4) Altered mental status: Code(s): R41.82 - Altered mental status, unspecified Status: Acute Assessment and Plan: On arrival to the ED, the patient had altered mental status, restless and agitated. She required 2 mg of IM Versed. Workup as above. No CT brain but patient's condition improved as her respiratory symptoms improved. [place] her symptoms related to acidosis. Start PT/OT (5) LBBB (left bundle branch block): Code(s): I44.7 - Left bundle-branch block, unspecified Status: Acute Assessment and Plan: Left bundle branch block noted by EKG and appears to be new. Cardiology was made aware from the ER. EKG does show paced rhythm. Troponin peaked at 0.2 and flat. Patient denies chest pain. Cardiolgoy consulted and appreciate their input Add ASA; statin therapy and Coreg resumed. (6) Elevated troponin: Code(s): R79.89 - Other specified abnormal findings of blood chemistry Status: Acute Assessment and Plan: As above (7) Diabetes: Code(s): E11.9 - Type 2 diabetes mellitus without complications Status: Acute Assessment and Plan: The patient's blood glucose was reviewed on 08/13 Glucose remains well controlled this morning. Start AccuCheks covering with sliding scale. Hypoglycemia protocol will be available as needed. (8) CKD (chronic kidney disease) stage 3, GFR 30-59 ml/min: Code(s): N18.30 - Chronic kidney disease, stage 3 unspecified Status: Acute Assessment and Plan: Baseline Cr 0.9-1.1 with eGFR >60 prior to admission. Cr 1.0 here and stable. Follow closely while on Lasix (9) Essential hypertension: Code(s): I10 - Essential (primary) hypertension Status: Acute Assessment and Plan: Patient's blood pressure was reviewed on 08/13 Blood pressure remains well controlled. Will continue to monitor (10) Depression: Code(s): F32.A - Depression, unspecified Status: Acute Assessment and Plan: Mood stable but unhappy affect. Care coordination to provide information about grief counselling. She would like to resume sertraline at 100mg dose - explained better to resume at lower dose but she is insistent Concern for incr
[2023-08-14] MEDS: ENOXAPARIN 40 MG/0.4 ML SYRINGE SUB-Q (16:45)
[2023-08-14] MEDS: ASPIRIN 81 MG CHEWABLE TABLET PO (16:45)
[2023-08-14 16:56] LABS: Glucose Point of Care 106 mg/dl (65-105)
[2023-08-14] MEDS: DOXYCYCLINE HYCLATE 100 MG TABLET PO (22:36)
[2023-08-14 23:02] LABS: Glucose Point of Care 128 mg/dl (65-105)
[2023-08-15] VITALS (19 sets, daily range): BP systolic 87–127; BP diastolic 48–78; PULSE 61–86; RESP 16–22; TEMP 36.1–36.2; O2SAT 94–100
--- NOTE | 2023-08-15 | ECHO_ITS ---
Patient Info Name: Rodney Love Age: 73 years : 1950 Gender: Female Ht: 61 in Wt: 167 lbs BSA: 1.84 m2 HR: 69 bpm BP: 97 / 53 mmHg Heart Rhythm: Sinus Rhythm Technical Quality: Good Exam Date: 08/15/2023 12:31 PM Exam Location: Echo Lab Patient Status: Inpatient Admit Date: 08/14/2023 Staff Ordering Physician: Alonzo Rivers MD Caponizer: Dasia Garcia RDCS Attending Provider: Lovely Ramachandran MD Exam Type: CA echo doppler color flow Study Info Indications - resp failure Complete two-dimensional, color flow and Doppler transthoracic echocardiogram is performed. Summary 1. Complete two-dimensional, color flow and Doppler transthoracic echocardiogram is performed. 2. Left ventricular chamber dimension is severely enlarged. 3. Left ventricular systolic function is severely reduced, estimated at 30-35%. 4. The left ventricular diastolic function is abnormal. 5. E/e' 35 is significantly elevated. 6. Global longitudinal strain is abnormal at -6.9%. 7. Linear artifact in right ventricle suggestive of catheter(s), pacemaker lead(s), or ICD lead(s). 8. Left atrial chamber dimension is moderately enlarged. 9. Linear artifact in the right atrium suggestive of catheter(s), pacemaker lead(s), or ICD lead(s). 10. There is moderate mitral valve regurgitation. 11. There is mild tricuspid valve regurgitation. 12. No pulmonary hypertension, estimated pulmonary arterial systolic pressure is 29 mmHg. 13. There is small circumferential pericardial effusion. Left Ventricle E/e' 35 is significantly elevated. Global longitudinal strain is abnormal at -6.9%. Left ventricular chamber dimension is severely enlarged. Left ventricular systolic function is severely reduced, estimated at 30-35%. The left ventricular diastolic function is abnormal. Right Ventricle Linear artifact in right ventricle suggestive of catheter(s), pacemaker lead(s), or ICD lead(s). Right ventricular chamber dimension is normal. Right ventricular systolic function is normal. Left Atria Left atrial chamber dimension is moderately enlarged. Right Atria Linear artifact in the right atrium suggestive of catheter(s), pacemaker lead(s), or ICD lead(s). Right atrial chamber dimension is normal. Aortic Valve The aortic valve is trileaflet. There is no aortic valve stenosis. There is no aortic valve regurgitation. Pulmonic Valve There is no pulmonic regurgitation. Mitral Valve There is no mitral valve stenosis. There is moderate mitral valve regurgitation. Tricuspid Valve There is mild tricuspid valve regurgitation. No pulmonary hypertension, estimated pulmonary arterial systolic pressure is 29 mmHg. Pericardium/Pleural No cardiac tamponade. There is small circumferential pericardial effusion. Inferior Vena Cava Normal inferior vena cava with >50% collapse upon inspiration consistent with normal right atrial pressure, 5 mmHg. Aorta The aortic root size at the sinus of Valsalva is normal. Left Ventricular Outflow Tract Name Value Normal LVOT 2D LVOT Diameter 2.0 cm LVOT Doppler LVOT Peak Gradient 2 mmHg LVOT Mean Gradient 1 mmHg LVOT VTI
[2023-08-15 04:54] LABS: Basophils Percent Auto 0.2 % (0.2-1.2); Hematocrit 38.4 % (37.0-47.0); Hemoglobin 12.1 g/dL (12.0-15.0); Immature Granulocyte Absolute 0.12 K/mm3 (0.00-0.031); Immature Granulocyte Percent A 0.8 % (0-0.5); Lymphocytes Absolute Auto 2.33 K/mm3 (0.9-3.2); Lymphocytes Percent Auto 14.7 % (18.3-44.2); Mean Corpuscular HGB Conc 31.5 g/dl (32-36); Mean Corpuscular Hemoglobin 25.8 pg (26-34); Mean Corpuscular Volume 81.9 fl (80-100); Mean Platelet Volume 11.3 fl (7.4-10.4); Monocytes Percent Auto 6.6 % (2.6-8.5); Neutrophils Absolute Auto 12.3 K/mm3 (1.3-6.7); Neutrophils Percent Auto 77.7 % (45.5-73.1); Platelet Count Result 199 k/mm3 (150-375); Red Blood Count 4.69 M/mm3 (4.2-5.4); Red Cell Distribution Width 16.3 % (11.5-14.5); White Blood Count 15.9 K/mm3 (4.5-10.0)
[2023-08-15 05:04] LABS: Lactic Acid Reflex 1.2 mmol/L (0.7-2.0)
[2023-08-15 05:16] LABS: Hemoglobin A1C 6.6 % (<5.7)
[2023-08-15 05:17] LABS: LDL Cholesterol Direct 105 mg/dL
[2023-08-15 05:23] LABS: Alanine Aminotransferase 28 U/L (6-35); Albumin Level 3.7 g/dL (3.5-5.1); Alkaline Phosphatase 70 U/L (38-126); Anion Gap 6 mmol/L (8-16); Aspartate Amino Transferase 29 U/L (14-36); Bilirubin,Total 0.4 mg/dL (0.2-1.3); Blood Urea Nitrogen 31 mg/dL (7-17); Calcium 9.5 mg/dL (8.4-10.2); Carbon Dioxide 26 mmol/L (22-30); Chloride 108 mmol/L (98-107); Cholesterol 181 mg/dL (0-200); Estimated CRCL calculation 34 ml/min; Estimated Glomerular Filt Rate 53; Glucose 128 mg/dL (65-110); HDL Direct 46 mg/dL; Magnesium 1.9 mg/dL (1.6-2.3); Potassium 3.5 mmol/L (3.4-5.0); Sodium 140 mmol/L (137-145); Triglycerides 91 mg/dL (<150)
--- NOTE | 2023-08-15 07:39 | PM.PNCARD ---
Progress Note: A&P Assessment and Plan (1) Community acquired bacterial pneumonia: Code(s): J15.9 - Unspecified bacterial pneumonia Status: Acute Assessment and Plan: On antibiotics as per hospitalist. (2) Acute exacerbation of congestive heart failure: Code(s): I50.9 - Heart failure, unspecified Status: Acute Assessment and Plan: Acute on chronic combined systolic and diastolic heart failure due to stopping her cardiac medication due to depression. Normally on Lasix 40 mg PO daily and KCl 10 meq daily. Resumed Coreg, Enalapril, Digoxin. Jardiance and Spironolactone added. Stop IV Lasix. Start Lasix 20 mg PO daily. Obtain echo today. (3) Biventricular ICD (implantable cardioverter-defibrillator) in place: Code(s): Z95.810 - Presence of automatic (implantable) cardiac defibrillator Status: Acute Assessment and Plan: Stable, last interrogation in Apr 2023. (4) Hypertension: Code(s): I10 - Essential (primary) hypertension Status: Acute Assessment and Plan: Stable. Resume home medication. (5) Dyslipidemia: Code(s): E78.5 - Hyperlipidemia, unspecified Status: Acute Assessment and Plan: On Atorvastatin and Zetia. (6) NICM (nonischemic cardiomyopathy): Code(s): I42.8 - Other cardiomyopathies Status: Acute (7) Tobacco abuse: Code(s): Z72.0 - Tobacco use Status: Acute Assessment and Plan: Counseled regarding smoking cessation. (8) Diabetes: Code(s): E11.9 - Type 2 diabetes mellitus without complications Status: Acute Assessment and Plan: Managed as per hospitalist. She would like to have right hip xray for pain per patient. Subjective Date/time seen: 08/15/23 07:39 Interval history: Reports chest pain with deep inspiration only. Mild sob. Exam Const: General: cooperative, healthy appearing and comfortable Orientation/consciousness: oriented to person, oriented to place and oriented to time Resp: Auscultation: crackles, no rhonchi and no wheezes Cardio: Rate: regular rate Rhythm: regular rhythm Heart sounds: no murmurs Peripheral pulses: dorsalis pedis present Neuro: General: oriented to person, oriented to place and oriented to time Extrem: Right lower extremity: no edema Left lower extremity: no edema Objective Data Vital Signs Vital Signs: Vital Signs - 24 hr 08/14/23 08:00 08/14/23 08:33 08/14/23 08:00 Temperature 97.8 F Pulse Rate 99 91 Respiratory Rate 16 Blood Pressure 128/77 Pulse Oximetry 96 95 Oxygen Delivery Nasal Cannula Oxygen Flow Rate 2 08/14/23 10:00 08/14/23 11:49 08/14/23 12:00 Temperature 97.9 F Pulse Rate 99 102 H 102 H Respiratory Rate 16 Blood Pressure 147/82 H Pulse Oximetry 94 Oxygen Delivery Oxygen Flow Rate 08/14/23 08:00 08/14/23 12:00 08/14/23 13:18 Temperature Pulse Rate 102 H Respiratory Rate Blood Pressure Pulse Oximetry 95 99 Oxygen Delivery Nasal Cannula Nasal Cannula Oxygen Flow Rate 4 4 08/14/23 13:19 08/14/23 14:00 08/14/23 15:15 Temperature 98.1 F Pulse Rate 102 H 97 102 H Respiratory Rate 18 Blood Pressure 124/71 Pulse Oximetry 95 Oxygen Delivery Oxygen Flow Rate 08/14/23 16:00 08/14/23 16:00 08/14/23 18:00 Temperature Pulse Rate 99 99 Respiratory Rate Blood Pressure Pulse Oximetry 97 Oxygen Delivery Nasal Cannula Oxygen Flow Rate 1 08/14/23 16:15 08/14/23 20:36 08/14/23 22:36 Temperature 98.3 F 96.9 F L Pulse Rate 100 86 82 Respiratory Rate 20 16 Blood Pressure 122/72 108/63 Pulse Oximetry 97 98 Oxygen Delivery Oxygen Flow Rate 08/15/23 00:06 08/14/23 20:00 08/15/23 00:00 Temperature 97.1 F L Pulse Rate 82 86 82 Respiratory Rate 16 16 16 Blood Pressure 103/62 Pulse Oximetry 98 98 98 Oxygen Delivery Nasal Cannula Nasal Cannula Oxygen Flow Rate 1 1 08/14/23 20:00 08/14/23
[2023-08-15 09:02] LABS: Glucose Point of Care 118 mg/dl (65-105)
[2023-08-15] MEDS: ENALAPRIL MALEATE 5 MG TABLET PO (09:08)
[2023-08-15] MEDS: DOXYCYCLINE HYCLATE 100 MG TABLET PO (09:08)
[2023-08-15] MEDS: EZETIMIBE 10 MG TABLET PO (09:08)
[2023-08-15] MEDS: ATORVASTATIN 40 MG TABLET 80 MG PO (09:08)
[2023-08-15] MEDS: DIGOXIN TAB 125 MCG TABLET PO (09:08)
[2023-08-15] MEDS: ENOXAPARIN 40 MG/0.4 ML SYRINGE SUB-Q (09:08)
[2023-08-15] MEDS: FUROSEMIDE 20 MG TABLET PO (09:08)
[2023-08-15] MEDS: POTASSIUM CHLORIDE 10 MEQ ER TABLET PO (09:09)
[2023-08-15] MEDS: EMPAGLIFLOZIN 10 MG TABLET PO (09:09)
[2023-08-15] MEDS: carvediloL 25 MG TABLET PO ×2 (09:09→21:23)
[2023-08-15] MEDS: SPIRONOLACTONE 12.5 MG TABLET PO (09:10)
--- NOTE | 2023-08-15 10:15 | PM.IMPN ---
Progress Note: A&P Assessment and Plan (1) Respiratory failure with hypoxia: Code(s): J96.91 - Respiratory failure, unspecified with hypoxia Status: Acute Assessment and Plan: Patient brought in by EMS for shortness of breath. Patient was agitated requiring Versed. ABG 7.27/37/147. Serum bicarb 17 with normal AG. Lactic acid 3.8. Glucose elevated but no BHO. CXR showing segmental and lobar LLL atelectasis/consolidation with moderate interstitial edema. Suspect acute on chronic CHF and/or PNA. Lasix given. Bipap started. Repeat ABG normal. Off Bipap and on O2 via nasal cannula Weaning O2; stop O2 since 98% on 1L. (2) Acute exacerbation of congestive heart failure: Code(s): I50.9 - Heart failure, unspecified Status: Acute Assessment and Plan: Patient presents with SOB Echo in Apr 2021 showing EF 25-30%, grade I diastolic dysfunction, decreased RV function, mild-mod MR and mod TR CXR showing interstitial edema. BNP 2260. Troponin elevated to 0.2 but flat felt related to the acute CHF Lasix started with good UOP. Continue daily weights, strict I/O's and fluid restriction Guideline directed medical therapy with Coreg and ACEi that were resumed. ICD in place. Empagliflozin and Spironolactone added Echo pending Lasix changed to oral route now (3) Community acquired bacterial pneumonia: Code(s): J15.9 - Unspecified bacterial pneumonia Status: Acute Assessment and Plan: As above. CXR showing segmental and lobar LLL atelectasis/consolidation WBC 11K. No fevers. COVID, influenza and RSV PCR is negative. Started on Rocephin and Azithromycin. UCx negative BCx NGTD WBC up to 16k now but did receive steroids in ED CXR today showing improved airspace disease Continue abx but change to oral. (4) Altered mental status: Code(s): R41.82 - Altered mental status, unspecified Status: Acute Assessment and Plan: On arrival to the ED, the patient had altered mental status, restless and agitated. She required 2 mg of IM Versed. Workup as above. No CT brain but patient's condition improved as her respiratory symptoms improved. [place] her symptoms related to acidosis. PT/OT ordered (5) LBBB (left bundle branch block): Code(s): I44.7 - Left bundle-branch block, unspecified Status: Acute Assessment and Plan: Left bundle branch block noted by EKG and appears to be new. Cardiology was made aware from the ER. EKG does show paced rhythm. Troponin peaked at 0.2 and flat. Patient denies chest pain. Cardiolgoy consulted and appreciate their input Continue ASA, statin therapy and Coreg (6) Elevated troponin: Code(s): R79.89 - Other specified abnormal findings of blood chemistry Status: Acute Assessment and Plan: As above (7) Diabetes: Code(s): E11.9 - Type 2 diabetes mellitus without complications Status: Acute Assessment and Plan: The patient's blood glucose was reviewed on 08/14 Glucose remains well controlled this morning. Start AccuCheks covering with sliding scale. Hypoglycemia protocol will be available as needed. Empagliflozin added (8) CKD (chronic kidney disease) stage 3, GFR 30-59 ml/min: Code(s): N18.30 - Chronic kidney disease, stage 3 unspecified Status: Acute Assessment and Plan: Baseline Cr 0.9-1.1 with eGFR >60 prior to admission. Cr 1.0 here but climbed to 1.2 from diuresis Follow closely (9) Essential hypertension: Code(s): I10 - Essential (primary) hypertension Status: Acute Assessment and Plan: Patient's blood pressure was reviewed on 08/14 Blood pressure soft now Will continue to monitor (10) Depression: Code(s): F32.A - Depression, unspecified Status: Acute Assessment and Plan: Mood stable today Care coordination to provide information about grief counselling. Add back low dose sertraline if
[2023-08-15] MEDS: ASPIRIN 81 MG CHEWABLE TABLET PO (11:19)
[2023-08-15] MEDS: SERTRALINE HCL 25 MG TABLET PO (11:19)
[2023-08-15 11:59] LABS: Glucose Point of Care 172 mg/dl (65-105)
[2023-08-15 16:37] LABS: Glucose Point of Care 113 mg/dl (65-105)
[2023-08-15 20:50] LABS: Glucose Point of Care 155 mg/dl (65-105)
[2023-08-16] VITALS (13 sets, daily range): BP systolic 109–133; BP diastolic 60–74; PULSE 61–82; RESP 16–20; TEMP 35.7–35.8; O2SAT 95–99
[2023-08-16 05:25] LABS: Hematocrit 39.5 % (37.0-47.0); Hemoglobin 12.1 g/dL (12.0-15.0); Mean Corpuscular HGB Conc 30.6 g/dl (32-36); Mean Corpuscular Hemoglobin 25.2 pg (26-34); Mean Corpuscular Volume 82.1 fl (80-100); Mean Platelet Volume 11.8 fl (7.4-10.4); Platelet Count Result 217 k/mm3 (150-375); Red Blood Count 4.81 M/mm3 (4.2-5.4); Red Cell Distribution Width 16.4 % (11.5-14.5); White Blood Count 10.6 K/mm3 (4.5-10.0)
[2023-08-16 05:51] LABS: Anion Gap 6 mmol/L (8-16); Blood Urea Nitrogen 26 mg/dL (7-17); Calcium 9.8 mg/dL (8.4-10.2); Carbon Dioxide 26 mmol/L (22-30); Chloride 110 mmol/L (98-107); Estimated CRCL calculation 37 ml/min; Estimated Glomerular Filt Rate 59; Glucose 94 mg/dL (65-110); Potassium 3.7 mmol/L (3.4-5.0); Sodium 142 mmol/L (137-145)
[2023-08-16 07:50] LABS: Glucose Point of Care 102 mg/dl (65-105)
--- NOTE | 2023-08-16 07:52 | PM.PNCARD ---
Progress Note: A&P Assessment and Plan (1) Community acquired bacterial pneumonia: Code(s): J15.9 - Unspecified bacterial pneumonia Status: Acute Assessment and Plan: On antibiotics as per hospitalist. (2) Acute exacerbation of congestive heart failure: Code(s): I50.9 - Heart failure, unspecified Status: Acute Assessment and Plan: Euvolemic. Acute on chronic combined systolic and diastolic heart failure due to stopping her cardiac medication due to depression. 08/15/23 Echo: EF 30-35%, severe LVE, diastolic dysfunction (E/e' 35), mod LAE, mod MR, mild TR, small pericardial effusion. On Coreg, Enalapril, Digoxin, Jardiance and Spironolactone, on Lasix 20 mg PO daily. May d/c home from cardiology standpoint and f/u with me in 1-2 weeks. (3) Biventricular ICD (implantable cardioverter-defibrillator) in place: Code(s): Z95.810 - Presence of automatic (implantable) cardiac defibrillator Status: Acute Assessment and Plan: Stable, last interrogation in Apr 2023. (4) Hypertension: Code(s): I10 - Essential (primary) hypertension Status: Acute Assessment and Plan: Stable. Resume home medication. (5) Dyslipidemia: Code(s): E78.5 - Hyperlipidemia, unspecified Status: Acute Assessment and Plan: On Atorvastatin and Zetia. (6) NICM (nonischemic cardiomyopathy): Code(s): I42.8 - Other cardiomyopathies Status: Acute (7) Tobacco abuse: Code(s): Z72.0 - Tobacco use Status: Acute Assessment and Plan: Counseled regarding smoking cessation. (8) Diabetes: Code(s): E11.9 - Type 2 diabetes mellitus without complications Status: Acute Assessment and Plan: Managed as per hospitalist. Subjective Date/time seen: 08/16/23 07:52 Interval history: Denies chest pain or sob. Exam Const: General: cooperative, healthy appearing and comfortable Orientation/consciousness: oriented to person, oriented to place and oriented to time Resp: Auscultation: clear to auscultation bilaterally, no crackles, no rales, no rhonchi and no wheezes Cardio: Rate: regular rate Rhythm: regular rhythm Heart sounds: no murmurs Peripheral pulses: dorsalis pedis present Neuro: General: oriented to person, oriented to place and oriented to time Extrem: Right lower extremity: no edema Left lower extremity: no edema Objective Data Vital Signs Vital Signs: Vital Signs - 24 hr 08/15/23 08:00 08/15/23 09:08 08/15/23 09:09 Temperature 97.2 F L Pulse Rate 70 74 72 Respiratory Rate 18 Blood Pressure 91/63 L Pulse Oximetry 98 Oxygen Delivery Oxygen Flow Rate Fraction of Inspired Oxygen 08/15/23 10:53 08/15/23 11:37 08/15/23 12:00 Temperature 97.1 F L Pulse Rate 76 Respiratory Rate 18 Blood Pressure 87/48 L Pulse Oximetry 94 Oxygen Delivery Nasal Cannula Nasal Cannula Oxygen Flow Rate 1 1 Fraction of Inspired Oxygen 08/15/23 14:42 08/15/23 16:00 08/15/23 08:00 Temperature 96.9 F L Pulse Rate 76 78 Respiratory Rate 22 H Blood Pressure 116/72 Pulse Oximetry 95 100 Oxygen Delivery Nasal Cannula Oxygen Flow Rate 2 Fraction of Inspired Oxygen 08/15/23 10:00 08/15/23 12:00 08/15/23 14:00 Temperature Pulse Rate 77 75 72 Respiratory Rate Blood Pressure Pulse Oximetry Oxygen Delivery Oxygen Flow Rate Fraction of Inspired Oxygen 08/15/23 16:00 08/15/23 18:00 08/15/23 08:00 Temperature Pulse Rate 72 61 Respiratory Rate Blood Pressure Pulse Oximetry 98 Oxygen Delivery Nasal Cannula Oxygen Flow Rate 1 Fraction of Inspired Oxygen 08/15/23 12:00 08/15/23 16:00 08/15/23 20:15 Temperature 96.9 F L Pulse Rate 65 Respiratory Rate 18 Blood Pressure 127/78 Pulse Oximetry 97 Oxygen Delivery Room Air Room Air Oxygen Flow Rate Fraction of Inspired Oxygen 08/15/23 21:23
[2023-08-16] MEDS: ENALAPRIL MALEATE 5 MG TABLET PO (10:13)
[2023-08-16] MEDS: POTASSIUM CHLORIDE 10 MEQ ER TABLET PO (10:13)
[2023-08-16] MEDS: AMOXICILLIN/CLAVULANATE K 875-125 MG TAB 1 TABLET PO (10:13)
[2023-08-16] MEDS: ATORVASTATIN 40 MG TABLET 80 MG PO (10:13)
[2023-08-16] MEDS: EZETIMIBE 10 MG TABLET PO (10:13)
[2023-08-16] MEDS: FUROSEMIDE 20 MG TABLET PO (10:13)
[2023-08-16] MEDS: ENOXAPARIN 40 MG/0.4 ML SYRINGE SUB-Q (10:14)
[2023-08-16] MEDS: carvediloL 25 MG TABLET PO (10:14)
[2023-08-16] MEDS: SERTRALINE HCL 25 MG TABLET PO (10:14)
[2023-08-16] MEDS: SPIRONOLACTONE 12.5 MG TABLET PO (10:14)
[2023-08-16] MEDS: DIGOXIN TAB 125 MCG TABLET PO (10:14)
[2023-08-16] MEDS: EMPAGLIFLOZIN 10 MG TABLET PO (10:14)
[2023-08-16 11:47] LABS: Glucose Point of Care 152 mg/dl (65-105)
[2023-08-16] MEDS: ASPIRIN 81 MG CHEWABLE TABLET PO (13:24)
--- NOTE | 2023-08-16 16:05 | PM.DS ---
DS: Admitting Diagnosis Discharge Date 08/16/23 Admitting Diagnosis Altered mental status DS: Discharge Diagnosis Discharge Diagnosis (1) Respiratory failure with hypoxia: Code(s): J96.91 - Respiratory failure, unspecified with hypoxia Status: Acute (2) Acute exacerbation of congestive heart failure: Code(s): I50.9 - Heart failure, unspecified Status: Acute (3) Community acquired bacterial pneumonia: Code(s): J15.9 - Unspecified bacterial pneumonia Status: Acute (4) Altered mental status: Code(s): R41.82 - Altered mental status, unspecified Status: Acute (5) LBBB (left bundle branch block): Code(s): I44.7 - Left bundle-branch block, unspecified Status: Acute (6) Elevated troponin: Code(s): R79.89 - Other specified abnormal findings of blood chemistry Status: Acute (7) Diabetes: Code(s): E11.9 - Type 2 diabetes mellitus without complications Status: Acute (8) CKD (chronic kidney disease) stage 3, GFR 30-59 ml/min: Code(s): N18.30 - Chronic kidney disease, stage 3 unspecified Status: Acute (9) Essential hypertension: Code(s): I10 - Essential (primary) hypertension Status: Acute (10) Depression: Code(s): F32.A - Depression, unspecified Status: Acute (11) Tobacco abuse: Code(s): Z72.0 - Tobacco use Status: Acute DS: Summary Hospital Course Reason for hospitalization: 73yo female with depression, systolic CHF with ICD, DM, CKD and HTN who presents with altered mental status and found to be hypoxic and acidotic. She required 2 mg of IM Versed as she was not cooperative and agitated.? Please see H&P for details. Hospital Course: Patient brought in by EMS for shortness of breath. Patient was agitated in the ED requiring Versed. ABG 7.27/37/147. Serum bicarb 17 with normal AG. Lactic acid 3.8. Glucose elevated but no BHO. CXR showing segmental and lobar LLL atelectasis/consolidation with moderate interstitial edema. Echo showing EF 30-35%, abnormal diastolic dysfunction, moderate MR and small pericardial effusion. BNP 2260. Troponin elevated to 0.2 but flat felt related to the acute/chronic systolic and diastolic CHF. Lasix started with good UOP. Guideline directed medical therapy with Coreg and ACEI that were resumed. ICD in place. Empagliflozin and Spironolactone added. Repeat ABG normal. Off Bipap and on O2 via nasal cannula. Able to be weaned off oxygen. Concern for PNA as well. WBC 11K. No fevers. COVID, influenza and RSV PCR is negative. She was started on Rocephin and Azithromycin. UCx negative. BCx NGTD. On arrival to the ED, the patient had altered mental status, restless and agitated. She required 2 mg of IM Versed. No CT brain but patient's condition improved as her respiratory symptoms improved. [place] her symptoms related to respiratory failure and acidosis. She worked with PT/OT. She feels she has longstanding underlying memory problems. Left bundle branch block noted by EKG and appears to be new. Cardiology was made aware from the ER.?EKG does show paced rhythm.? Patient denies chest pain. Cardiology consulted and appreciate their input. She was complaining of right flank pain and had CVA tenderness. Renal US showing no acute fiindings. Pain improved. Patient overall did well and was able to be discharged on 08/16/23 Status at Discharge Cognitive/behavioral status at discharge: stable Time Spent with Patient Time attestation: Total time spent providing and/or coordinating discharge services: 35 minutes Time spent: Greater than 30 minutes Exam Narrative: AF 96.2 109/66 70 18 97% ra Gen - NARD Chest - CTA bilaterally, nml RR CV - RRR S1/S2. Tele showing mostly paced rhythm Abd - Soft, NT/ND, Positive BS Ext - No pedal edema Psych - Nml mood and affect affect Skin - Warm and dry DS: Data Data Completed and Pending Labs on day of discharge: Labs from [facility]
[2023-08-16 16:14] LABS: Glucose Point of Care 106 mg/dl (65-105)
== END 2023-08-16 18:04 | disposition home or self-care (01) | DRG 193 ==
LOC: ANHED 22:04 → ANHIMU 22:33
PROVIDERS: Internal Medicine Cardiovascular Disease; Admitting Provider General Practice; Emergency Provider Emergency Medicine; PCP Internal Medicine; Visit Provider Internal Medicine
DX: J18.9 Pneumonia, unspecified organism (principal); I50.43 Acute on chronic combined systolic (congestive) and diastolic (congestive) heart failure; J96.01 Acute respiratory failure with hypoxia; I13.0 Hypertensive heart and chronic kidney disease with heart failure and stage 1 through stage 4 chronic kidney disease, or unspecified chronic kidney disease; I42.8 Other cardiomyopathies; N18.30 Chronic kidney disease, stage 3 unspecified; E11.22 Type 2 diabetes mellitus with diabetic chronic kidney disease; E78.5 Hyperlipidemia, unspecified; F43.20 Adjustment disorder, unspecified; F17.210 Nicotine dependence, cigarettes, uncomplicated; F32.A Depression, unspecified; I44.7 Left bundle-branch block, unspecified; Z91.199 Patient's noncompliance with other medical treatment and regimen due to unspecified reason; Z95.810 Presence of automatic (implantable) cardiac defibrillator
CPT/HCPCS: 36415; 36600; 71045; 73502; 76775; 80048; 80053; 80061; 81001; 82375; 82805; 82948; 83036; 83050; 83605; 83690; 83735; 83880; 84443; 84484; 85025; 85027; 85610; 85730; 87040; 87086; 87088; 87637; 93005; 93306; 94002; 94640; 96365; 96375; 97161; 97165; 99291; A9270; G0378; J0456; J0696; J1650; J1940; J2930

== ENCOUNTER 2024-10-26 14:14 | Outpatient (CLI) | payer MEDICARE, SELFPAY ==
--- OUTSIDE RECORDS SUMMARY | 2024-10-26 14:17 | XMS_ITS | Referral Summary ---
Author Organization [facility] Address [address] [place] [id number] Care Team Providers Care Real Property Appraiser Name Role Phone Charles Arellano MD Primary Care Provider [phone] Allergies No known active allergies Medications carvediloL (COREG) 25 mg tablet Take 1 tablet (25 mg total) by mouth 2 (two) times a day 05/19/2020 Active atorvastatin (LIPITOR) 40 mg tablet Take 1 tablet (40 mg total) by mouth nightly 06/23/2015 Active enalapril (VASOTEC) 5 mg tablet Take 1 tablet (5 mg total) by mouth daily 05/19/2020 Active furosemide (LASIX) 40 mg tablet Take 1 tablet (40 mg total) by mouth daily 06/26/2015 Active sertraline (ZOLOFT) 100 mg tablet Take 1 tablet (100 mg total) by mouth daily Active cholecalciferol (VITAMIN D-3) 5,000 unit capsule Take 1 capsule (5,000 Units total) by mouth daily Active allopurinoL (ZYLOPRIM) 100 mg tablet Take 1 tablet (100 mg total) by mouth daily as needed As needed for gout 01/18/2020 Active digoxin (LANOXIN) 125 mcg (0.125 mg) tablet Take 1 tablet (125 mcg total) by mouth daily 06/26/2015 Active Active Problems Problem Noted Date Diagnosed Date Chest pain, unspecified type 01/27/2023 SOB (shortness of breath) 01/27/2023 Obesity, Class II, BMI 35-39.9 01/27/2023 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 Dx; NICM. [facility]. Patient follows with Dr Sellers. Social History Tobacco Use Types Packs/Day Years Used Date Smoking Tobacco: Every Day Smokeless Tobacco: Never Alcohol Use Standard Drinks/Week Comments Yes 0 (1 standard drink = 0.6 oz pur e alcohol) Personal Safety Answer Date Recorded Getting School Help Needed Not on file 02/02 Comments No Sex and Gender Information Value Date Recorded Sex Assigned at Not on file Legal Sex Female 9:01 PM FILM RECORDIST Gender Identity Not on file Sexual Orientation Not on file Last Filed Vital Signs Vital Sign Reading Time Taken Comments Blood Pressure 128/76 01/28/2023 3:06 PM CDT Pulse 73 01/28/2023 3:06 PM CDT Temperature 36.5 C (97.7 F) 01/28/2023 3:06 PM CDT Respiratory Rate 16 01/28/2023 3:06 PM CDT Oxygen Saturation 100% 01/28/2023 3:06 PM CDT Inhaled Oxygen Concentration - - Weight 76.3 kg (168 lb 3.2 oz) 01/27/2023 11:16 PM CDT Height 154.9 cm (5' 1 ) 01/27/2023 11:16 PM CDT Body Mass Index 31.78 01/27/2023 11:16 PM CDT Plan of Treatment Not on file Procedures Procedure Name Priority Date/Time Associated Diagnosis Comments SCREENING MAMMOGRAM BILATERAL W BRANDEN Schedule Routine, Read Routine (OP Routine) 07/28/2021 2:45 PM FILM RECORDIST Encounter for screening mammogram for malignant neoplasm of breast DEXA AXIAL SKELETON BONE DENSITY 1 OR MORE SITES Schedule Routine, Read Routine (OP Routine) 07/25/2018 1:38 PM FILM RECORDIST Asymptomatic menopausal state COLONOSCOPY IMAGES 07/04/2015 from Last 3 Months or Most Recently Relevant to Health Maintenance Results * Screening Mammogram Bilateral W Branden (07/28/2021 2:45 PM FILM RECORDIST) Anatomical Region Laterality Modality Breast Bilateral Mammography 07/28/2021 3:47 PM FILM RECORDIST Impressions 07/28/2021 3:47 PM FILM RECORDIST There is no mammographic evidence of malignancy. A 1 year screening mammogram is recommended. BI-RADS: 1 - Negative. The patient has been or will be contacted. The patient will be entered into a reminder system with a target due date of 1 year for her next mammogram. Electronically signed by: Osmani Castelan M.D. Narrative 07/28/2021 3:47 PM FILM RECORDIST EXAMINATION: SCREENING MAMMOGRAM BILATERAL W BRANDEN ORDERING HEALTHCARE PROVIDER: SANDY SONG HISTORY: Routine screening mammography. COMPARISON: 05/06/2020, 08/05/2016, 02/02/2016, 01/08/2016 TECHNIQUE: CC and MLO views of the bilateral breasts were obtained with digital technique using breast tomosynthesis with C view. Computer aided detection was utilized. FINDINGS: DENSITY: There are scattered fibroglandular elements in the bilateral breasts. BREASTS: There is a left chest wall pacemaker/defibrillator which objects over and partially obscures the left axilla on the MLO view. There are no suspicious masses, suspicious calcifications, or other suspicious findings in either breast. There has been no suspicious interval change. Sandy Song MD IM MAMMO PROCEDURES Final Result * Dexa Axial Skeleton Bone Density 1 or 2 Site (07/25/2018 1:38 PM FILM RECORDIST) Anatomical Region Laterality Modality Body N/A Other 07/25/2018 1:39 PM FILM RECORDIST Impressions 07/25/2018 1:40 PM FILM RECORDIST 1. OSTEOPOROSIS OF THE LEFT HIP. 2. OSTEOPENIA OF THE LUMBAR SPINE. COMMENT: W.H.O. defines the T-score of between -1 and -2.5 as osteopenia, the level at which there may be an increased risk of developing osteoporosis and fractures in the future. Osteoporosis is defined as T-score lower than -2.5 (significantly increased risk of fracture due to osteoporosis). T-score is a comparison to peak bone mineral density of young adult reference population. Z-score is a comparison to bone mineral density of sex and age group population. Electronically signed by: Yuan Robb M.D. Narrative 07/25/2018 1:40 PM FILM RECORDIST DEXA AXIAL SKELETON BONE DENSITY 1 OR MORE SITES HISTORY: Postmenopausal osteoporosis evaluation. COMPARISON: None available. FINDINGS: DXA LEFT HIP RESULTS SUMMARY: 1. Femoral neck BMD 0.563 (g/cmsquared); T-SCORE -2.6 2. Total hip BMD 0.711 (g/cmsquared); T-SCORE -1.9 DXA L-SPINE RESULTS SUMMARY: 1. Total lumbar BMD 0.886 (g/cmsquared); T-SCORE -1.5 Procedure Note Yuan Robb MD - 07/25/2018 DEXA AXIAL SKELETON BONE DENSITY 1 OR MORE SITES HISTORY: Postmenopausal osteoporosis evaluation. COMPARISON: None available. FINDINGS: DXA LEFT HIP RESULTS SUMMARY: 1. Femoral neck BMD 0.563 (g/cmsquared); T-SCORE -2.6 2. Total hip BMD 0.711 (g/cmsquared); T-SCORE -1.9 DXA L-SPINE RESULTS SUMMARY: 1. Total lumbar BMD 0.886 (g/cmsquared); T-SCORE -1.5 IMPRESSION: 1. OSTEOPOROSIS OF THE LEFT HIP. 2. OSTEOPENIA OF THE LUMBAR SPINE. COMMENT: W.H.O. defines the T-score of between -1 and -2.5 as osteopenia, the level at which there may be an increased risk of developing osteoporosis and fractures in the future. Osteoporosis is defined as T-score lower than -2.5 (significantly increased risk of fracture due to osteoporosis). T-score is a comparison to peak bone mineral density of young adult reference population. Z-score is a comparison to bone mineral density of sex and age group population. Electronically signed by: Yuan Robb M.D. Sandy Song MD IM DXA PROCEDURES Final Re sult * COLONOSCOPY IMAGES (07/04/2015) Anatomical Region Laterality Modality Other Narrative 07/04/2015 Ordered by an unspecified provider. Historical Provider GI PROCEDURE ORDERABLES F inal Result from Last 3 Months or Most Recently Relevant to Health Maintenance Insurance [facility] MEDICARE ADVANTAGE [place] [id number] [facility] MEDICARE ADVANTAGE Advance Directives For more information, please contact: [phone] * Full Code (Latest Code Status on File) Date Activated Date Inactivated Comments 01/27/2023 11:17 PM 01/28/2023 11:37 PM Care Teams Real Property Appraiser Relationship Specialty Start Date End Date Charles Arellano MD [address] [place] [address] DR LIM B [address] [id number] PCP - General Family Medicine 02/24/24
--- OUTSIDE RECORDS SUMMARY | 2024-10-26 14:17 | XMS_ITS | Clinical Summary ---
Author Organization [facility] [employer] Address [facility] [place] [address] Care Team Providers Care Transfer Driver Name Role Phone Unavailable Primary Care Provider Unavailabl e Source Comments [facility] [employer],non-owned Affiliates and Associated Physician Practices is amultiple site organization consisting of ambulatory clinics and hospital sitesin [place], [place], [place] and [place]. This disclosure is being madepursuant to the Care Everywhere program and may not contain all information available regarding this patient. Last updated 18.[facility] [employer] Allergies No known active allergies Social History Tobacco Use Types Packs/Day Years Used Date Smoking Tobacco: Every Day Cigarettes Smokeless Tobacco: Never Tobacco Cessation:Ready to Q uit: Not Asked; Counseling Given: Not Answered Alcohol Use Standard Drinks/Week Comments Never 0 (1 standard drink = 0.6 oz pur e alcohol) Comments Unknown Sex and Gender Information Value Date Recorded Sex Assigned at Not on file Legal Sex Female 2:37 PM SWITCH CLEANER Gender Identity Not on file Sexual Orientation Not on file Last Filed Vital Signs Vital Sign Reading Time Taken Comments Blood Pressure 152/94 05/29/2024 2:40 PM SWITCH CLEANER Pulse 98 05/29/2024 2:40 PM SWITCH CLEANER Temperature 36.6 C (97.9 F) 05/29/2024 2:40 PM SWITCH CLEANER Respiratory Rate 16 05/29/2024 2:40 PM SWITCH CLEANER Oxygen Saturation 99% 05/29/2024 4:00 PM SWITCH CLEANER Inhaled Oxygen Concentration - - Weight - - Height 154.9 cm (5' 1 ) 05/29/2024 2:40 PM SWITCH CLEANER Body Mass Index - - Plan of Treatment Health Maintenance Due Date Last Done Comments COLOGSHONA (AGES 45-75) - COLON CA SCREENING 1949 COLON MONITORING 1949 COLONOSCOPY - COLON CA SCREENING 1949 CT COLONOGRAPHY - COLON CA SCREENING 1950 Colorectal Cancer Screening 1949 FIT - COLON CA SCREENING 1949 FLEX SIG - COLON CA SCREENING 1949 HEPATITIS C SCREENING 03/18/1967 DTAP/TDAP/TD VACCINES (1 - Tdap) 1968 PNEUMOCOCCAL VACCINE 50+ (1 of 2 - PCV) 1968 ZOSTER VACCINE (1 of 2) 1999 MAMMOGRAM 07/28/2023 07/28/2021, 07/14, 05/06/2020, Additional history exists COVID-19 VACCINE ( - season) 2024 03/27/2021, 02/20/2021 Respiratory Syncytial Virus (RSV) Vaccine Pt: or over 60 yrs (1 - 1-dose 75+ series) 2024 DEPRESSION SCREENING 06/13/2024 MEDICARE AWV CALENDAR YEAR 2024 INFLUENZA VACCINE (Season Ended) 2025 06/01/2019, 04/11/2017, 05/29/2015, Additional history exists LIPID TESTING 01/29/2028 01/28/2023 BONE DENSITY TESTING Completed 07/25/2018, 01/08/20 16 HEPATITIS B VACCINE Aged Out No longe r eligible based on patient's age to complete this topic HIB VACCINE Aged Out No longer eligi ble based on patient's age to complete this topic HPV VACCINE Aged Out No longer eligi ble based on patient's age to complete this topic MENINGOCOCCAL (Group B) VACCINE SHARED DECISION-MAKING Aged Out No longer eligible based on patient's age to complete this topic MENINGOCOCCAL GROUPS A/C/Y/W VACCINE Aged Out No longer eligible based on patient's age to complete this topic Insurance [facility] MANAGED MEDICARE ADV MEDICARE
--- OUTSIDE RECORDS SUMMARY | 2024-10-26 14:17 | XMS_ITS | Clinical Summary ---
Author Organization [facility] Address [address] [place] [address] Phone Care Team Providers Care Rodding Anode Worker Name Role Phone Aquilino Farrell MD Unavailable [phone] Charles Arellano MD Primary Care Provider [phone] Allergies No known active allergies Medications digoxin (LANOXIN) 125 MCG Tablet Take 1 Tab by mouth daily. 12 6 Active enalapril (VASOTEC) 20 MG Tablet Take 20 mg by mouth daily. 2 5 Active furosemide (LASIX) 40 MG Tablet Take 40 mg by mouth daily. 2 6 Active atorvastatin (LIPITOR) 40 MG Tablet Take 40 mg by mouth nightly. 5 6 Active sertraline (ZOLOFT) 100 MG Tablet Take 100 mg by mouth daily. 0 6 Active Cholecalciferol (VITAMIN D PO) Take 5,000 Units by mouth daily. Active POTASSIUM PO Take 10 mEq by mouth 2 times daily. Active carvedilol (COREG) 25 MG Tablet Take 50 mg by mouth 2 times daily. Active HYDROcodone-everardo taminophen (NORCO) 5-325 MG Tablet Take 1-2 Tabs by mouth every 4 hours as needed for Pain. 40 Tab 0 6 Active polyethylene glycol (MIRALAX) Powder Use entire 255g bottle with 64oz of clear liquid as directed for colonoscopy prep. 255 g 0 7 Active alendronate (FOSAMAX) 5 MG Tablet Take 5 mg by mouth every morning (before breakfast). Active Jardiance 10 MG Tablet 4 Active spironolactone (ALDACTONE) 25 MG Tablet Take 25 mg by mouth daily. Active Active Problems Problem Noted Date Diagnosed Date Acute frontal sinusitis 07/23/2015 Colon neoplasm 07/23/2015 Immunizations Immunization Administration Dates Next Due Influenza Vaccine greater than 3 yrs 05/29/2015 Family History Medical History Relation Name Comments Arthritis Father Diabetes Father Osteoarthritis Father Colon Cancer Maternal Aunt Heart Attack Mother Heart Disease Mother Hypertension Mother Diabetes Sister Relation Name Status Comments Father Maternal Aunt Mother Sister Social History Tobacco Use Types Packs/Day Years Used Date Smoking Tobacco: Every Day Cigarettes 0.3 50 Smokeless Tobacco: Never Tobacco Cessation:Ready to Q uit: Not Asked; Counseling Given: Not Answered Comments:She is trying to quit Alcohol Use Standard Drinks/Week Comments Not Currently 0 (1 standard drink = 0.6 oz pur e alcohol) Comments No Sex and Gender Information Value Date Recorded Sex Assigned at Not on file Legal Sex Female 8:11 AM MATHEMATICS ACADEMIC CHAIR Gender Identity Not on file Sexual Orientation Not on file Last Filed Vital Signs Vital Sign Reading Time Taken Comments Blood Pressure 115/65 08/02/2016 10:20 AM MATHEMATICS ACADEMIC CHAIR Pulse 74 08/02/2016 8:15 AM MATHEMATICS ACADEMIC CHAIR Temperature 36 C (96.8 F) 08/02/2016 10:20 AM MATHEMATICS ACADEMIC CHAIR Respiratory Rate 18 08/02/2016 10:20 AM MATHEMATICS ACADEMIC CHAIR Oxygen Saturation 97% 08/02/2016 10:20 AM MATHEMATICS ACADEMIC CHAIR Inhaled Oxygen Concentration - - Weight 68 kg (150 lb) 08/02/2016 8:15 AM MATHEMATICS ACADEMIC CHAIR Height 154.9 cm (5' 1 ) 08/02/2016 8:15 AM MATHEMATICS ACADEMIC CHAIR Body Mass Index 28.34 08/02/2016 8:15 AM MATHEMATICS ACADEMIC CHAIR Plan of Treatment Health Maintenance Due Date Last Done Comments Hepatitis C Virus (HCV) Screening 1949 TdaP Immunization 1949 Cologuard 1999 Immunochemical Fecal Occult Blood 1999 Zoster Immunization (1 of 2) 1999 DEXA Bone Density 01/07/2018 01/08/2016 Colonoscopy 08/02/2019 08/02/2016, 07/04/2015 Colorectal Cancer Screening 08/02/2019 Pneumococcal Immunization (50+ years) (2 of 2 - PCV) 08/25/2019 08/24/2018, 06/13/2013 Influenza Immunization (#1) 2024 12/, 04/11/2017, 07/07/2015, Additional history exists SARS-COV-2 Immunization ( season) 2024 03/27/2021, 02/20/2021 Respiratory Syncytial Virus (RSV) Immunization (Adult) (1 - 1-dose 75+ series) 2024 08/02/2016, 07/04/2015 Mammogram Discontinued 01/08/2016 Pneumococcal Immunization Combined Discontinued 08/24/2018, 06/13/2013 Hepatitis B Immunization Aged Out No longer eligible based on patient's age to complete this topic Meningococcal Immunization (ACWY) Aged Out No longer eligible based on patient's age to complete this topic Rotavirus Immunization Aged Out No lo nger eligible based on patient's age to complete this topic Procedures Procedure Name Priority Date/Time Associated Diagnosis Comments [facility] SCREENING BILATERAL DIGITAL W CAD Routine 01/08/2016 12:12 PM CDT Visit for screening mammogram [facility] BONE DENSITOMETRY AXIAL SKELETON Routine 01/08/2016 11:38 AM CDT HM COLONOSCOPY Routine 07/04/2015 from Last 3 Months or Most Recently Relevant to Health Maintenance Results * [facility] SCREENING BILATERAL DIGITAL W CAD (01/08/2016 12:12 PM CDT) Anatomical Region Laterality Modality breast Bilateral Mammography 01/08/2016 11:4 7 AM CDT Narrative 01/09/2016 7:32 AM CDT - [facility] SCREENING BILATERAL DIGITAL W CAD BILATERAL DIGITAL SCREENING MAMMOGRAM WITH CAD WITH MEDIOLATERAL OBLIQUE CRANIOCAUDAL: 01/08/2016 The study was acquired using digital technology and interpreted from soft copy. Current study was also evaluated with ICAD version 7.2. CLINICAL: New baseline screening. Patient has no complaints. No personal history of cancer. No family history of breast cancer. COMPARISONS: No prior exams were available for comparison. BREAST TISSUE:There are scattered fibroglandular densities in both breasts. FINDINGS: There is a benign intramammary node in the left breast. There is a mass in the left breast at 2 o'clock posterior depth. No other significant masses, calcifications, or other findings are seen in either breast. IMPRESSION: BI-RAD 0 ADDITIONAL IMAGING EVALUATION NEEDED The mass in the left breast is indeterminate. An immediate follow-up is recommended. The patient has been or will be contacted. Anatoly robert/penrad:01/08/2016 13:42:33 Mortar Mixer: Shannan Brandt([place]), [facility] letter sent: Additional Imaging Reading location: [facility] BI-RADS: 0 Additional Imaging Evaluation Needed Procedure Note Anatoly Sy MD - 01/09/2016 - [facility] SCREENING BILATERAL DIGITAL W CAD BILATERAL DIGITAL SCREENING MAMMOGRAM WITH CAD WITH MEDIOLATERAL OBLIQUE CRANIOCAUDAL: 01/08/2016 The study was acquired using digital technology and interpreted from soft copy. Current study was also evaluated with ICAD version 7.2. CLINICAL: New baseline screening. Patient has no complaints. No personal history of cancer. No family history of breast cancer. COMPARISONS: No prior exams were available for comparison. BREAST TISSUE:There are scattered fibroglandular densities in both breasts. FINDINGS: There is a benign intramammary node in the left breast. There is a mass in the left breast at 2 o'clock posterior depth. No other significant masses, calcifications, or other findings are seen in either breast. IMPRESSION: BI-RAD 0 ADDITIONAL IMAGING EVALUATION NEEDED The mass in the left breast is indeterminate. An immediate follow-up is recommended. The patient has been or will be contacted. Anatoly robert/penrad:01/08/2016 13:42:33 Mortar Mixer: Shannan Brandt([place]yn[place]), [facility] letter sent: Additional Imaging Reading location: [facility] BI-RADS: 0 Additional Imaging Evaluation Needed us Margarita Gresham MD IMG MAMMO ORDERABLES Stephanie solis Result * [facility] BONE DENSITOMETRY AXIAL SKELETON (01/08/2016 11:38 AM CDT) Anatomical Region Laterality Modality BODY N/A Other 01/08/2016 2:06 PM CDT Impressions 01/08/2016 2:09 PM CDT IMPRESSION: Low bone mass Additional Clinical Information: Bone mineral density: Normal (T-score above or = -1.0) Low bone mass (T-score between -1.0 and -2.5) replaces the previously used term osteopenia Osteoporosis (T-score = or below -2.5) Medical evaluation for secondary causes of low bone mineral density may be appropriate. FRAX is a World Health Organization validated fracture risk assessment tool that calculates a person's 10 year probability of a major osteoporosis related fracture and hip fracture. According to the National Osteoporosis Foundation guidelines, postmenopausal women and men age 50 or older with low bone mass and a 10 year probability of a major osteoporosis related fracture = or greater than 20% or a 10 year probability of a hip fracture = or greater than 3% should be considered for treatment. For further information, including treatment recommendations, please refer to the 2013 ISCD Official Positions (http://www.iscd.org) and the NOF's Clinician's Guide to Prevention and Treatment of Osteoporosis (http://www.nof.org/professionals/clinical-guidelines) Narrative 01/08/2016 2:09 PM CDT EXAMINATION: DXA Bone Density HISTORY: 65 year old postmenopausal female with given history of postmenopausal. Current Height: 61 inches Maximum Height: 61 inches Weight: 144 pounds RISK FACTORS: Smoker for greater than 50 years COMPARISON(S): None CONNECTION WORKER/MODEL: [employer] (S/N [id number]) FINDINGS: AP lumbar spine L1-L4 Total BMD is 1.0 g/la5T-guvnf is -1.6 Left Hip Total BMD is 0.86 g/gh5B-luwli is -1.2 Neck BMD is 0.74 g/xq8N-juxly is -2.2 Fracture risk assessment (FRAX): 10 year risk for a major osteoporotic fracture is 5.7 % 10 year risk for a hip fracture is 1.6 % The FRAX tool has not been validated in patients currently or previously treated with pharmacotherapy for osteoporosis. In such patients, clinical judgement must be exercised in interpreting FRAX scores as the fracture risk may be overestimated. THIS IS AN ELECTRONICALLY VERIFIED REPORT 01/08/2016 2:06 PM: Nick Coello M.D. Nick Coello M.D. Radiologist AR:kelin INESSA Procedure Note Nick Colelo MD - 01/08/2016 EXAMINATION: DXA Bone Density HISTORY: 65 year old postmenopausal female with given history of postmenopausal. Current Height: 61 inches Maximum Height: 61 inches Weight: 144 pounds RISK FACTORS: Smoker for greater than 50 years COMPARISON(S): None CONNECTION WORKER/MODEL: [employer] (S/N [id number]) FINDINGS: AP lumbar spine L1-L4 Total BMD is 1.0 g/ax6O-ddckt is -1.6 Left Hip Total BMD is 0.86 g/wk6X-acgka is -1.2 Neck BMD is 0.74 g/qv9S-oryyd is -2.2 Fracture risk assessment (FRAX): 10 year risk for a major osteoporotic fracture is 5.7 % 10 year risk for a hip fracture is 1.6 % The FRAX tool has not been validated in patients currently or previously treated with pharmacotherapy for osteoporosis. In such patients, clinical judgement must be exercised in interpreting FRAX scores as the fracture risk may be overestimated. THIS IS AN ELECTRONICALLY VERIFIED REPORT 01/08/2016 2:06 PM: Trisha Saavedra M.D. Radiologist AR:kelin INESSA IMPRESSION: Low bone mass Additional Clinical Information: Bone mineral density: Normal (T-score above or = -1.0) Low bone mass (T-score between -1.0 and -2.5) replaces the previously used term osteopenia Osteoporosis (T-score = or below -2.5) Medical evaluation for secondary causes of low bone mineral density may be appropriate. FRAX is a World Health Organization validated fracture risk assessment tool that calculates a person's 10 year probability of a major osteoporosis related fracture and hip fracture. According to the National Osteoporosis Foundation guidelines, postmenopausal women and men age 50 or older with low bone mass and a 10 year probability of a major osteoporosis related fracture = or greater than 20% or a 10 year probability of a hip fracture = or greater than 3% should be considered for treatment. For further information, including treatment recommendations, please refer to the 2013 ISCD Official Positions (http://www.iscd.org) and the NOF's Clinician's Guide to Prevention and Treatment of Osteoporosis (http://www.nof.org/professionals/clinical-guidelines) us Margarita Gresham MD IMG DEXA ORDERABLES Final Result * COLONOSCOPY (07/04/2015) Nadia Monge MD PROCEDURE/MINOR SURGICAL OR DERABLES Final Result from Last 3 Months or Most Recently Relevant to Health Maintenance Insurance MEDICARE C [employer] on file Care Teams Rodding Anode Worker Relationship Specialty Start Date End Date Charles Arellano MD [address] [place] [address] PCP - General Family Medicine 02/28/24 Aquilino Farrell MD General Surgery 07/22/15
--- OUTSIDE RECORDS SUMMARY | 2024-10-26 14:17 | XMS_ITS | Clinical Summary ---
Author Organization [facility] Address [address] [place] [id number] Care Team Providers Care Nursing Student Name Role Phone Charles Arellano MD Primary Care Provider [phone] Allergies No known active allergies Medications carvediloL [...] BIV ICD generator change. Dx; NICM. [facility]. Patient follows with Dr Sellers. Surgical History Surgery Date Site/Laterality Comments HYSTERECTOMY 06/13/1986 - 06/12/1987 OOPHORECTOMY 06/13/1986 - 06/12/1987 Bilateral BREAST BIOPSY 06/13/1998 - 06/12/1999 Left benign needle bx Medical History Medical History Date Comments Diabetes mellitus (HCC) Hypertension CHF (congestive heart failure) (HCC) Cataracts, both eyes Hypercholesteremia Smoking Family History Medical History Relation Name Comments Breast cancer Neg Hx Ovarian cancer Neg Hx Thyroid cancer Neg Hx Social History Tobacco Use Types Packs/Day Years [...] on file Legal Sex Female 9:01 PM DATA INTEGRATION ARCHITECT Gender Identity Not on file Sexual Orientation Not on file Obstetrics History Para Term AB IAB SAB Ectopic Multiple Livin g Live Births 1 1 1 Date Outcome GA Total Labor Labor/2nd/3rd Weight Sex Type Anes PTL Jenae A1 A5 Name Clin Term Last Filed Vital Signs Vital Sign Reading [...] 01/27/2023 11:16 PM CDT Plan of Treatment Health Maintenance Due Date Last Done Comments Depression Screening 1950 Hepatitis C Screening 1949 DTaP/Tdap/Td Vaccine (1 - Tdap) 1960 Hepatitis B Screening 1967 Zoster Vaccine (1 of 2) 1999 Well Visit 65+ 2014 Osteoporosis Screening-Bone Density Scan 07/25/2020 07/25/2018 Fall Risk Assessment 01/29/2024 01/28/2023 Influenza Vaccine (Season Ended) 2025 06/01/2019, 04/11/2017, 07/07/2015, Additional history exists Colon Cancer Screening-Colonoscopy 07/04/2025 07/04/2015, 07/04/2015 Colon Cancer Screening-CT Colonography Discontinued 07/04/2015, 07/04/2015 Colon Cancer Screening-DNA Stool Discontinued 07/04/19 16, 07/04/2015 Colon Cancer Screening-FIT Discontinued 07/04/2015, Colon Cancer Screening-Sigmoidoscopy Discontinued 07/04/2015, 07/04/2015 Pneumococcal vaccine 65+ Completed 08/24/2018, 06/2013 Breast Cancer Screening-Mammogram Discontinued 022, 05/06/2020 Procedures Procedure Name Priority Date/Time Associated Diagnosis Comments SCREENING MAMMOGRAM BILATERAL W BRANDEN Schedule Routine, Read Routine (OP Routine) 07/28/2021 2:45 PM DATA INTEGRATION ARCHITECT Encounter for screening mammogram for malignant neoplasm of breast DEXA AXIAL SKELETON BONE DENSITY 1 OR MORE SITES Schedule Routine, Read Routine (OP Routine) 07/25/2018 1:38 PM DATA INTEGRATION ARCHITECT Asymptomatic menopausal state COLONOSCOPY IMAGES 07/04/2015 from Last 3 Months or Most Recently Relevant to Health Maintenance Results * Screening Mammogram Bilateral W Branden (07/28/2021 2:45 PM DATA INTEGRATION ARCHITECT) Anatomical Region Laterality Modality Breast Bilateral Mammography 07/28/2021 3:47 PM DATA INTEGRATION ARCHITECT Impressions 07/28/2021 3:47 PM DATA INTEGRATION ARCHITECT There is no mammographic evidence of malignancy. A 1 year screening mammogram is recommended. BI-RADS: 1 - Negative. The patient has been or will be contacted. The patient will be entered into a reminder system with a target due date of 1 year for her next mammogram. Electronically signed by: Osmani Castelan M.D. Narrative 07/28/2021 3:47 PM DATA INTEGRATION ARCHITECT EXAMINATION: SCREENING MAMMOGRAM BILATERAL W BRANDEN ORDERING [...] no suspicious interval change. Sandy Song MD IMG MAMMO PROCEDURES Final Result * Dexa Axial Skeleton Bone Density 1 or 2 Site (07/25/2018 1:38 PM DATA INTEGRATION ARCHITECT) Anatomical Region Laterality Modality Body N/A Other 07/25/2018 1:39 PM DATA INTEGRATION ARCHITECT Impressions 07/25/2018 1:40 PM DATA INTEGRATION ARCHITECT 1. OSTEOPOROSIS OF THE LEFT HIP. 2. [...] Yuan Robb M.D. Narrative 07/25/2018 1:40 PM DATA INTEGRATION ARCHITECT DEXA AXIAL SKELETON BONE DENSITY 1 OR [...] Most Recently Relevant to Health Maintenance Insurance [facility] MEDIC[facility] ADV[facility]AGE [facility] Advance Directives For more information, please contact: [phone] * Full Code (Latest Code Status on File) Date Activated Date Inactivated Comments 01/27/2023 11:17 PM 01/28/2023 11:37 PM Care Teams Nursing Student Relationship Specialty Start Date End Date Charles Arellano MD [address] [facility] [facility] [address] [address] PCP - General Family Medicine 02/24/24
[2024-10-26 14:53] LABS: Alanine Aminotransferase 20 U/L (6-35); Albumin Level 4.2 g/dL (3.5-5.1); Alkaline Phosphatase 76 U/L (38-126); Anion Gap 8 mmol/L (4-12); Aspartate Amino Transferase 31 U/L (14-36); Bilirubin,Total 0.6 mg/dL (0.2-1.3); Blood Urea Nitrogen 15 mg/dL (7-17); Calcium 9.7 mg/dL (8.4-10.2); Carbon Dioxide 27 mmol/L (22-30); Chloride 109 mmol/L (98-107); Cholesterol 189 mg/dL (0-200); Estimated Glomerular Filt Rate 50; Glucose 109 mg/dL (65-110); HDL Direct 48 mg/dL; Potassium 4.3 mmol/L (3.4-5.0); Sodium 144 mmol/L (137-145); Triglycerides 92 mg/dL (<150)
[2024-10-26 14:57] LABS: Digoxin < 0.5 ng/mL (0.8-2.0)
[2024-10-26 15:04] LABS: LDL Cholesterol Direct 100 mg/dL
== END 2024-10-26 14:15 | disposition home or self-care (01) ==
PROVIDERS: PCP Internal Medicine; Visit Provider Internal Medicine Cardiovascular Disease
DX: I42.8 Other cardiomyopathies (principal); E78.5 Hyperlipidemia, unspecified
CPT/HCPCS: 36415; 80053; 80061; 80162; 84443